=== PATIENT | female | born 1950 | race Caucasian/White ===

== ENCOUNTER → 2016-05-11 | Outpatient (CLI) | payer OTHER, BC ==
[~2016-05-11] MED LIST: PENTAMIDINE ISETHIONATE 300MG/6ML INH SYRINGE NEB ONE
== END ==
LOC: FCP 08:22
DX: C91.10 Chronic lymphocytic leukemia of B-cell type not having achieved remission (principal)
CPT/HCPCS: 94642; J2545

== ENCOUNTER → 2016-06-26 | Outpatient (CLI) | payer OTHER, BC | LOC: FCP 08:13 | DX: C91.10 Chronic lymphocytic leukemia of B-cell type not having achieved remission (principal) | CPT/HCPCS: 94642; J2545 ==

== ENCOUNTER → 2016-07-24 | Outpatient (CLI) | payer OTHER, BC | LOC: FCP 08:18 | PROC: 3E0F7GC Introduction of Other Therapeutic Substance into Respiratory Tract, Via Natural or Artificial Opening (ICD-10-PCS; principal; 2016-07-24) | DX: C91.10 Chronic lymphocytic leukemia of B-cell type not having achieved remission (principal); J18.9 Pneumonia, unspecified organism | CPT/HCPCS: 94642; J2545 ==

== ENCOUNTER → 2016-08-21 | Outpatient (CLI) | payer OTHER, BC | LOC: FCP 07:20 | PROC: 3E0F7GC Introduction of Other Therapeutic Substance into Respiratory Tract, Via Natural or Artificial Opening (ICD-10-PCS; principal; 2016-08-21) | DX: C91.10 Chronic lymphocytic leukemia of B-cell type not having achieved remission (principal); J18.9 Pneumonia, unspecified organism | CPT/HCPCS: 94642; J2545 ==

== ENCOUNTER 2016-08-31 08:52 | Day surgery (SDC) | payer OTHER, BC ==
[~2016-08-31 08:52] MED LIST changes: +BUPIVACAINE 0.5% 30 ML SDV ONE; +LIDOCAINE 1% 30 ML SDV ONE; -PENTAMIDINE ISETHIONATE 300MG/6ML INH SYRINGE NEB ONE; +SODIUM BICARBONATE 10 MEQ/10 ML SYR IVP ONE
[2016-08-31] MEDS ORDERED: PROPOFOL/EMULSION 500 MG/50 ML BOTTLE IV ONE (10:06)
[2016-08-31] MEDS ORDERED: fentaNYL 100 MCG/2 ML INJ ONE ×2 (10:06→11:57)
[2016-08-31] MEDS ORDERED: VANCOMYCIN 500 MG in D5W 100 ML IV ONE (10:30)
[2016-08-31] MEDS ORDERED: DEXAMETHASONE 4 MG/ML VIAL ONE (10:38)
[2016-08-31] MEDS ORDERED: ONDANSETRON 4 MG/2 ML VIAL ONE (10:54)
[2016-08-31] MEDS ORDERED: epHEDrine SULFATE 10 MG/ML SYR ONE (10:56)
--- NOTE | 2016-08-31 19:45 | GOP ---
[f rep st] OPERATIVE REPORT DATE OF OPERATION: 08/31/2016 SURGEON: Steven Kirby MD PREOPERATIVE DIAGNOSIS: Chronic lymphocytic leukemia. POSTOPERATIVE DIAGNOSIS: Chronic lymphocytic leukemia. PROCEDURE PERFORMED: Port placement for chemotherapy access. FINDINGS: good position and flow DESCRIPTION OF PROCEDURE: Patient received a satisfactory general endotracheal anesthesia by . She was placed in the supine position and prepped and draped in the usual sterile fashion. Then she was placed in Trendelenburg. A single stick was made in the left subclavian vein. Guidewire was introduced. Position was confirmed with fluoroscopy. A subcu pocket was made in the 2nd intercostal space at the site of a previous port placement. Pocket was created and port tubing was passed from that pocket to the subclavian insertion site, trimmed to the appropriate length using fluoroscopic guidance. It was then introduced through the introducer sheath and dilator system into the left subclavian vein and into the right atrium. Good backflow was achieved. The catheter was flushed with heparin and saline. His was secured to the fascia with 3-0 Vicryl, and the pocket was closed with 3-0 Vicryl for the subcu and 4-0 Prolene subcuticular stitch for the skin. The entrance site was closed with Prolene mattress suture. He tolerated the procedure well and was taken to the recovery room in good condition. There were no complications. /[id number]/MODL MTDD
== END 2016-08-31 13:48 | disposition home or self-care (01) ==
LOC: FSGY 08:52
PROVIDERS: ATTEND Surgery
PROC: 0JH60XZ Insertion of Tunneled Vascular Access Device into Chest Subcutaneous Tissue and Fascia, Open Approach (ICD-10-PCS; principal; 2016-08-31 10:15)
PROC: B312ZZZ Fluoroscopy of Left Subclavian Artery (ICD-10-PCS; principal; 2016-08-31 10:15)
PROC: 02HV33Z Insertion of Infusion Device into Superior Vena Cava, Percutaneous Approach (ICD-10-PCS; principal; 2016-08-31 10:15)
DX: C91.10 Chronic lymphocytic leukemia of B-cell type not having achieved remission (principal); E03.9 Hypothyroidism, unspecified; I71.2 Thoracic aortic aneurysm, without rupture
CPT/HCPCS: C1788; J1100; J1642; J2405; J2704; J3010; J3370

== ENCOUNTER → 2016-09-17 | Outpatient (CLI) | payer OTHER, BC | LOC: BHCLAF 13:15 | PROVIDERS: ATTEND Internal Medicine Cardiovascular Disease | DX: I72.9 Aneurysm of unspecified site (principal) | CPT/HCPCS: 93306-PO ==

== ENCOUNTER 2016-09-21 19:07 | Emergency (ER) | payer OTHER, BC ==
--- NOTE | 2016-09-21 20:00 | EDPHY ---
H & P Time Seen by Provider: 09/21/16 19:59 HPI/ROS: Chief complaint. shortness of breath HPI. 66-year-old female with history of CLL had a port placed in left anterior chest 2 weeks ago. Today she has right leg swelling and calf pain. Shortness of breath beginning yesterday. She has some left sided discomfort worse with deep breathing. No fever cough. Dyspnea on exertion. No similar symptoms previously. No abdominal pain, urinary symptoms. No injury to her leg. No history of PE/DVT or arm her heart problems ROS Constitutional. no fever/chills, no weakness Eyes. no problems with vision ENT. no sore throat, no nasal drainage Cardiovascular. Left anterior chest pain Respiratory. Shortness of breath Abdominal. no abdominal pain, no nausea/vomiting, no diarrhea . no problems urinating MS. Right lower extremity swelling Skin. no rash Lymph. no swollen glands Neuro. no headache, no dizziness, no difficulty walking or with speech Past Medical/Surgical History: CLL Social History: Single nonsmoker, no alcohol Smoking Status: Never smoked Physical Exam: General Appearance: Alert well-developed female mild distress vital signs are stay Eyes: Pupils equal and round no pallor or injection. ENT, Mouth: Mucous membranes are moist. Respiratory: There are no retractions, lungs are clear to auscultation. Cardiovascular: Regular rate and rhythm. Gastrointestinal: Abdomen is soft and nontender, no masses, bowel sounds normal. Neurological: Awake and alert, sensory and motor exams grossly normal. Skin: Warm and dry, no rashes. Musculoskeletal: Neck is supple nontender. Extremities mild swelling to the right her lower extremities Psychiatric: Patient is oriented X 3, there is no agitation. Constitutional: Initial Vital Signs Temperature (C) 36.9 C 09/21/16 19:12 Heart Rate 91 09/21/16 19:12 Respiratory Rate 18 09/21/16 19:12 Blood Pressure 132/69 H 09/21/16 19:12 O2 Sat (%) 95 09/21/16 19:12 O2 Delivery Mode Room Air Allergies/Adverse Reactions: cefdinir Allergy (Verified 09/21/16 19:16) Quinolones Allergy (Verified 09/21/16 19:16) NAUSEA, ITCHING, RASH Home Medications: Medication Instructions Recorded Thyroid [[place] Thyroid 60 MG (*)] 60 mg PO DAILY@07 09/17/14 Acyclovir [Zovirax 400 mg (*)] 300 mg PO BID 09/21/16 Medical Decision Making - Diagnostics EKG Interpretation: EKG interpreted by me shows use normal sinus rhythm with normal interval and axis. QRS is normal there is no significant ST elevation or depression. There is no arrhythmia. The rate is 76 Imaging Results: Imaging Impressions Chest/Thorax CTA 09/21/16 20:15 Impression: 1. Negative for acute pulmonary embolic disease. 2. Adenopathy consistent with the history of leukemia. Results called and discussed with Dr. Kenyatta Tyson M.D., on September 21, 2016 at 2228 hours. E:PK/amm Extremity Venous Study 09/21/16 20:16 Impression: No evidence of deep vein thrombosis in the right lower extremity. Results called and discussed with Dr. KENYATTA TYSON on 09/21/2016 at 21:50 Ultrasound right lower extremity reviewed by me and discussed with Dr. Newsome shows no evidence for DVT CT chest shows no evidence for pulmonary embolus Procedures: IV normal saline, monitor Patient tells me she has reaction to contrast. We will give her Benadryl and Solu-Medrol prior to CT ED Course/Re-evaluation: Patient's blood level has dropped and so rectal exam is performed. Stool is heme-negative Re-evaluation at 11:15 p.m.. Patient is stable. She feels well to go home. She and I discussed laboratory and imaging studies. We discussed treatment plan including criteria for return importance of follow-up and further evaluation. She is encouraged to return over the weekend for worsening symptoms. She expresses understanding and agreement Differential Diagnosis: I considered pulmonary embolus, DVT, pneumonia, GI bleed. - Data Points Laboratory Results: Laboratory Results 09/21/16 20:45 09/21/16 20:45 09/21/16 09/21/16 09/21/16 22:10 20:45 20:45 WBC RBC Hgb Hct MCV MCH MCHC RDW Plt Count MPV Neut % (Auto) Lymph % (Auto) [place] % (Auto) Eos % (Auto) Baso % (Auto) Nucleat RBC Rel Count Absolute Neuts (auto) Absolute Lymphs (auto) Absolute Monos (auto) Absolute Eos (auto) Absolute Basos (auto) Absolute Nucleated RBC Immature Gran % Seg Neutrophils % Lymphocytes % Monocytes % Eosinophils % Basophils % Immature Gran # Absolute Seg Neuts Absolute Lymphocytes Absolute Monocytes Absolute Eosinophils Absolute Basophils Atypical Lymphocytes Platelet Estimate Hypochromasia Microcytic Cells Smear Review By PT 13.1 SEC SEC (12.0-15.0) INR 1.00 (0.83-1.16) D-Dimer < 0.27 ug/mLFEU ug/mLFEU (0.00-0.50) Sodium 141 mEq/L mEq/L (134-144) Potassium 4.4 mEq/L mEq/L (3.5-5.2) Chloride 108 mEq/L mEq/L (97-110) Carbon Dioxide 22 mEq/l mEq/l (22-31) Anion Gap 11 mEq/L mEq/L (8-16) BUN 18 mg/dL mg/dL (7-23) Creatinine 0.9 mg/dL mg/dL (0.6-1.0) Estimated GFR > 60 Glucose 80 mg/dL mg/dL (70-100) Calcium 9.2 mg/dL mg/dL (8.5-10.4) Troponin I < 0.012 ng/mL ng/mL (0-0.034) Stool Occult Bld Scrn NEGATIVE (NEGATIVE) 09/21/16 20:45 WBC 12.84 10^3/uL H 10^3/uL (3.80-9.50) RBC 3.02 10^6/uL L 10^6/uL (4.18-5.33) Hgb 8.5 g/dL L g/dL (12.6-16.3) Hct 25.9 % L % (38.0-47.0) MCV 85.8 fL fL (81.5-99.8) MCH 28.1 pg pg (27.9-34.1) MCHC 32.8 g/dL g/dL (32.4-36.7) RDW 15.9 % H % (11.5-15.2) Plt Count 244 10^3/uL 10^3/uL (150-400) MPV 11.5 fL fL (8.7-11.7) Neut % (Auto) Not Reported Lymph % (Auto) Not Reported P[place] % (Auto) Not Reported Eos % (Auto) Not Reported Baso % (Auto) Not Reported Nucleat RBC Rel Count 0.0 % % (0.0-0.2) Absolute Neuts (auto) Not Reported Absolute Lymphs (auto) Not Reported Absolute Monos (auto) Not Reported Absolute Eos (auto) Not Reported Absolute Basos (auto) Not Reported Absolute Nucleated RBC 0.00 10^3/uL 10^3/uL (0-0.01) Immature Gran % Not Reported Seg Neutrophils % 34 % % Lymphocytes % 61 % % Monocytes % 1 % % Eosinophils % 2 % % Basophils % 2 % % Immature Gran # Not Reported Absolute Seg Neuts 4.37 10^/uL 10^/uL (1.70-6.50) Absolute Lymphocytes 7.83 10^3/uL H 10^3/uL (1.00-3.00) Absolute Monocytes 0.13 10^3/uL L 10^3/uL (0.30-0.80) Absolute Eosinophils 0.26 10^3/uL 10^3/uL (0.03-0.40) Absolute Basophils 0.26 10^3/uL H 10^3/uL (0.02-0.10) Atypical Lymphocytes 1+ H Platelet Estimate ADEQUATE (ADEQ) Hypochromasia 2+ H Microcytic Cells 2+ H Smear Review By Pending PT INR D-Dimer Sodium Potassium Chloride Carbon Dioxide Anion Gap BUN Creatinine Estimated GFR Glucose Calcium Troponin I Stool Occult Bld Scrn Medications Given: Discontinued Medications Diphenhydramine HCl (Benadryl Injection) 25 mg IVP EDNOW ONE Stop: 09/21/16 20:15 Last Admin: 09/21/16 20:42 Dose: 25 mg Sodium Chloride (Ns) 1,000 mls @ 0 mls/hr IV ONCE ONE PRN Reason: Wide Open Stop: 09/21/16 20:15 Last Admin: 09/21/16 20:40 Dose: 1,000 mls Methylprednisolone Sodium Succinate (Solu-Medrol) 125 mg IVP EDNOW ONE Stop: 09/21/16 20:15 Last Admin: 09/21/16 20:44 Dose: 125 mg Departure - Departure Disposition: Home, Routine, Self-Care Clinical Impression: Dyspnea Qualifiers: Dyspnea type: shortness of breath Qualified Code(s): R06.02 - Shortness of breath Condition: Good Instructions: Dyspnea (ED) Additional Instructions: Continue regular medications. Return for worsening symptoms over the weekend of difficulty breathing or abdominal pain. Recheck by Vivian Feliz or [facility] next week on Saturday or Saturday when the office really opens. Referrals: Mamie Conley MD [Primary Care Provider] - As per Instructions Vivian Feliz MD [Medical Doctor] - As per Instructions
[2016-09-21] MEDS ORDERED: NS 1,000 ML IV ONE (20:14)
[2016-09-21] MEDS ORDERED: methylPREDNISolone SOD SUCC 125 MG/2 ML VIAL IVP ONE (20:14)
[2016-09-21] MEDS ORDERED: IOPAMIDOL (ISOVUE 370) 100 ML BTL IV ONE (20:34)
[2016-09-21 20:53] LABS: ADD MORPH? NO; ATYPICAL LYMPHOCYTE FLAG 10 (0-99); FRAGMENT RBC FLAG 20 (0-99); HEMATOCRIT 25.9 % (38.0-47.0); HEMOGLOBIN 8.5 g/dL (12.6-16.3); LEFT SHIFT FLG 0 (0-99); LIPEMIA HEMOLYSIS FLAG 80 (0-99); MEAN CELL HEMOGLOBIN 28.1 pg (27.9-34.1); MEAN CELL HEMOGLOBIN CONCENTR. 32.8 g/dL (32.4-36.7); MEAN CELL VOLUME 85.8 fL (81.5-99.8); MEAN PLATELET VOLUME 11.5 fL (8.7-11.7); PLATELET CLUMPS FLAG 10 (0-99); PLATELET COUNT 244 10^3/uL (150-400); RED BLOOD CELL COUNT 3.02 10^6/uL (4.18-5.33); RED CELL DISTRIBUTION WIDTH 15.9 % (11.5-15.2)
[2016-09-21 20:54] LABS: ADD DIFF? YES; ADD SCAN? NO
--- NOTE | 2016-09-21 20:54 | CPEKG ---
Heart Rate: 76 RR Interval: 789 P-R Interval: 128 QRSD Interval: 98 QT Interval: 408 QTC Interval: 459 P Diagonal: 13 QRS Diagonal: 28 T Wave Diagonal: 10 EKG Severity - NORMAL ECG - EKG Impression: SINUS RHYTHM Electronically Signed By: Oliver Tyson 21-Sep-2016 23:55:53
[2016-09-21 21:03] LABS: PROTIME(PATIENT) 13.1 SEC (12.0-15.0)
[2016-09-21 21:06] LABS: ANION GAP 11 mEq/L (8-16); CALCIUM 9.2 mg/dL (8.5-10.4); CARBON DIOXIDE 22 mEq/l (22-31); CHLORIDE 108 mEq/L (97-110); CREATININE 0.9 mg/dL (0.6-1.0); GLOMERULAR FILTRATION RATE > 60; GLUCOSE 80 mg/dL (70-100); POTASSIUM 4.4 mEq/L (3.5-5.2); SODIUM 141 mEq/L (134-144)
[2016-09-21 21:18] LABS: TROPONIN I < 0.012 ng/mL (0-0.034)
[2016-09-21 21:22] VITALS: RESP 20
[2016-09-21 21:37] LABS: HYPOCHROMIA 2+; MICROCYTES 2+; PLATELET ESTIMATE ADEQUATE (ADEQ)
[2016-09-21 22:12] VITALS: O2SAT 94
[2016-09-21 23:46] VITALS: BP 114/73; PULSE 95; TEMP 97.9
== END 2016-09-21 23:46 | disposition home or self-care (01) ==
DX: R06.02 Shortness of breath (principal)
CPT/HCPCS: 71275; 93005; 93971; 96361; 96374; 96375; 99285; J1200; Q9967

== ENCOUNTER 2016-11-29 10:03 | Outpatient (CLI) | payer OTHER, BC ==
[2016-11-29] MEDS ORDERED: ACETAMINOPHEN 325 MG TAB PO ONE (10:45)
[2016-11-29 10:59] VITALS: BP 109/70; PULSE 80; RESP 16; TEMP 97.7; O2SAT 94
[2016-11-29] MEDS ORDERED: diphenhydrAMINE 25 MG CAP PO ONE (11:00)
== END 2016-11-29 14:45 | disposition home or self-care (01) ==
LOC: FOBOP 10:03
PROVIDERS: ATTEND Internal Medicine Hematology & Oncology
PROC: 30233N1 Transfusion of Nonautologous Red Blood Cells into Peripheral Vein, Percutaneous Approach (ICD-10-PCS; principal; 2016-11-29)
DX: C91.10 Chronic lymphocytic leukemia of B-cell type not having achieved remission (principal); D72.829 Elevated white blood cell count, unspecified
CPT/HCPCS: 36430; J1642; P9016; P9040

== ENCOUNTER 2016-12-07 11:55 | Observation (INO) | payer OTHER, BC ==
[2016-12-07] MEDS ORDERED: methylPREDNISolone SOD SUCC 125 MG/2 ML VIAL IVP ONE ×2 (13:50→14:03)
[2016-12-07] MEDS ORDERED: LIDOCAINE/PRILOCAINE 1 EACH CRTUBE TP ONE (13:50)
[2016-12-07] MEDS ORDERED: ACETAMINOPHEN 325 MG TAB PO PRN (14:03)
[2016-12-07] MEDS ORDERED: ONDANSETRON DISINTEGRATING 4 MG TAB PO PRN (14:03)
[2016-12-07] MEDS ORDERED: ONDANSETRON 4 MG/2 ML VIAL IVP PRN (14:03)
[2016-12-07] MEDS ORDERED: ALBUTEROL 3 ML DEYVIAL IH PRN (14:03)
[2016-12-07] MEDS ORDERED: OXYCODONE/APAP 5/325 TAB PO PRN (14:03)
[2016-12-07] MEDS ORDERED: IMMUNE GLOBULIN 5 GM/50 ML VIAL IV ONE (14:15)
[2016-12-07] MEDS ORDERED: IMMUNE GLOBULIN 20 GM/200 ML VIAL IV ONE (14:15)
--- NOTE | 2016-12-07 14:29 | PDGENHP ---
History and Physical - Chief Complaint dyspnea - History of Present Illness This is a 66 yo female with hx of CLL who was directly admitted from [facility] office due to dyspnea and dyspnea on exertion and concern for acute P.E. She is seen in the Oncology unit. She reports several days hx of Dyspnea and Dyspnea on exertion which is positional. Worse when laying down. Afebrile. Denies CP, palpitations, leg swelling, diaphoresis, jaw pain. No hx of CV disease. Currently not symptomatic and with no dyspnea. Reports no fever, cough , wheezing, or other. Denies tobacco abuse. On RA. No tachycardia. No anxiety PMHx: -CLL -Leukocytosis -contrast allergy -Hypogammaglobulinemia -intra-abdominal mass -Hypothyroidism PSHx: Hysterectomy, abdominal wall biopsy Soc Hx: lives with dauther. Denies tobacco, ETOH, or illicits FmHx: NC All/Meds: see below History Information - Allergies/Home Medication List Allergies/Adverse Reactions: cefdinir Allergy (Verified 09/21/16 19:16) Quinolones Allergy (Verified 09/21/16 19:16) NAUSEA, ITCHING, RASH Home Medications: RX: Thyroid [[place] Thyroid 60 MG (*)] 60 mg PO DAILY@07 09/17/14 [Last Taken ] Acyclovir [Zovirax 400 mg (*)] 300 mg PO BID 09/21/16 [Last Taken 12/07/16] Allopurinol [Allopurinol 300 MG (RX)] 300 mg PO DAILY 11/29/16 [Last Taken 12/06] Ibrutinib [Imbruvica] 420 mg PO DAILY@19 11/29/16 [Last Taken 12/06/16 2 caps] Alive Multivitamin 1 each PO DAILY 12/07/16 [Last Taken 12/06/16] Gentamicin 0.3% [Gentak 0.3% Opht Oint (RX)] 2 drops EACHEYE TID 12/07/16 [Last Taken Unknown] Immune Support 1 each PO DAILY 12/07/16 [Last Taken 12/06/16] I have personally reviewed and updated: medical history, social history, surgical history - Social History Smoking Status: Never smoked Review of Systems ROS: 10pt was reviewed & negative except for what was stated in HPI & below Physical Exam Temp Pulse Resp BP Pulse Ox 37.0 C 71 16 111/72 100 12/07/16 12:07 12/07/16 12:07 12/07/16 12:07 12/07/16 12:07 12/07/16 12:07 Constitutional: no apparent distress, appears nourished, not in pain Eyes: PERRL, anicteric sclera, EOMI Ears, Nose, Mouth, Throat: moist mucous membranes, hearing normal, No dry mucous membranes Cardiovascular: regular rate and rhythym, No no murmur, rub, or gallop, No JVD, No edema Respiratory: no respiratory distress, no rales or rhonchi, clear to auscultation Gastrointestinal: normoactive bowel sounds, soft, non-tender abdomen, no palpable masses Skin: warm Neurologic: AAOx3, sensation intact bilaterally, weakness Psychiatric: interacting appropriately, not anxious, not encephalopathic Assessment & Plan Assessment: #Dyspnea in pt with contrast allergy #CLL #Leukocytosis #Hypogammaglobulinemia #Hypothyroidism Plan: -Admit observation -Reviewed records. She had an unremarkable CTA chest on 09/21. Solumedrol 125 mg IV x 1 and Benadryl were provided w/o incident. She reports she tolerated this well. Will pretreat with this regime prior to CTA -Onc mgmt and IVIG per onc -She is very stable on RA currently, no hx of CV disease. NO hx of ID sx's. Will hold of further CV or ID w/u at this time -SCD's -Full code (for now. She has an advance directive but doesnt know what it reads , wants to be a full code for now) -Plan d/w Oncology and nursing team
--- NOTE | 2016-12-07 14:37 | GCON ---
[f rep st] CONSULTATION ONCOLOGY CONSULTATION PRIMARY ONCOLOGIST: Vivian Feliz MD REASON FOR VISIT: Evaluation and management for CLL. HISTORY OF PRESENT ILLNESS: The patient is a 66-year-old woman who was diagnosed with CLL in approx imately 2007. She did require therapy until middle of 2011 when she received bendamustine plus nena ximab. Apparently she had a significant improvement in extensive lymphadenopathy. In April 2013, she recurred and was seen by Dr. Leahy at [facility]. She had also seen for poss ible transplant and recommended ibrutinib which she started in April 2013. Unfortunately she did not really tolerate a full dose and she stopped that for approximately 5 months. She did have a sig nificant improvement in mesenteric retroperitoneal lymphadenopathy. She then developed progression again and I suggested that she consider trying idelalisib and rituximab, but she did not tolerate id elalisib with a skin rash, tingling and difficulty breathing. She then went on a clinical trial wit h obinutuzumab plus venetoclax in February 2015 and did well up until September of this year when she sta rted progressing. She then was started on a trial with TTI-621, its binding to CD47 prevented it fr om delivering an inhibitory do not eat signal to macrophages. Unfortunately she progressed on this treatment. She is being evaluated for CAR T protocol and was started back on ibrutinib. She did ge t a jump in her lymphocyte count, as expected from the drug, and she still has chronic fatigue, but she thinks some of the lymphadenopathy, especially in her abdominal lymphadenopathy, has significant ly improved. She was in the office today for followup and was noticing more trouble breathing. Her night sweats have improved. She denied any fever but she had a new prod uctive cough. She has also lost about 15 pounds over the last 6 weeks. While in the office, with a ctivity, her oxygen saturation went down in the 70s. She is admitted to the hospital to work this u p. She believes that she has had a significant reaction to CT contrast dye in the past. PAST MEDICAL HISTORY: 1. CLL as per HPI. 2. Hypogammaglobulinemia requiring recurrent monthly IVIG, last was early October I believe. 3. Hypothyroidism. SURGICAL HISTORY: Includes hysterectomy and . FAMILY HISTORY: Father at age 99. Mother was last checked, still living at age 92. She has a sister who may have chronic leukemia. SOCIAL HISTORY: She is a nonsmoker. REVIEW OF SYSTEMS: 10-point review of systems performed. Pertinent positives in HPI, otherwise neg ative. The only other thing she complained about is occasionally things feel like they "get stuck i n her throat." This includes pills and when she is eating well. She also does not have much of an appetite because food does not taste good. PHYSICAL EXAMINATION: VITAL SIGNS: Current temperature is 37, pulse is 71, blood pressure is 111/7 0. She is saturating currently at rest at above 90%. GENERAL: She is pale but in no distress. HEENT: Sclerae nonicteric. Oral mucosa is unremarkable. LUNGS: Actually clear currently. CARDIAC : Regular with a 2/6 systolic flow murmur. ABDOMEN: Soft. She has fullness in the pelvis consist ent with the previous lymphadenopathy. EXTREMITIES: No edema. LABORATORY DATA: This morning her white count was 225,000; it was 210,000 on the 1st. Hemoglobin i s 8.3 g/dL, 7.4 g/dL on the 1st. She did receive 1 unit of blood in between. Platelet count is 163,0 00 which is up from 139,000. ANC is 5400. Chemistries are unremarkable. Her total bilirubin liliam u p a little bit to 2.9 from 2.1. IMPRESSION: 1. Shortness of breath, cough and hypoxia with activity. 2. Refractory CLL. PLAN: Unclear exactly the etiology of the drop in her on oxygenation. I think we should get a CT a ngiogram to rule out a blood clot. We can also look to see if she has evidence of a pneumonia. She is late on her IVIG and will make sure she gets a dose overnight. If the CT scan is unremarkable a nd she either stabilizes or oxygenation improves with replacement, she might be able to go home. If she has a clot, of course, we would treat her and probably best to treat her with oral drugs such a s apixaban or actual rivaroxaban. If she has pneumonia, of course, then she would need to be approp riately treated with antibiotics along with the IVIG. Finally she could have enlarged lymph nodes i n her chest causing some partial obstruction. If that is thought to be the case, she might benefit from palliative radiation but that could be set up outpatient. Because there is a possible history of an allergic reaction, we will give her Benadryl and a low dose of Solu-Medrol prior to the CT. S he did not want the standard dose because the steroids make her very jittery, but she was willing to use a low dose, understanding the risks. /[id number]/MODL
[2016-12-07] MEDS ORDERED: IOPAMIDOL (ISOVUE 370) 100 ML BTL IV ONE (15:24)
[2016-12-07] MEDS: LORazepam 0.5 MG TAB PO PRN (15:28)
[2016-12-07] MEDS ORDERED: GENTAMICIN 0.3% 3.5 GM OPHT.OINT EACHEYE SCH (16:00)
[2016-12-07] MEDS: GENTAMICIN 0.3% OPHT DROPS 5ML EACHEYE SCH ×2 (17:41→21:36)
[2016-12-07] MEDS ORDERED: Ibrutinib [Imbruvica] 420 MG PO SCH ×3 (19:00)
[2016-12-07] MEDS: ALLOPURINOL 300 MG TAB PO SCH (20:19)
[2016-12-07] MEDS: ACYCLOVIR 400 MG TAB PO SCH (21:36)
[2016-12-08] MEDS: LORazepam 0.5 MG TAB PO PRN (00:23)
[2016-12-08 04:05] VITALS: RESP 16
[2016-12-08 04:51] LABS: ABSOLUTE NRBC COUNT 0.03 10^3/uL (0-0.01); ADD DIFF? YES; ATYPICAL LYMPHOCYTE FLAG 0 (0-99); HEMATOCRIT 25.4 % (38.0-47.0); LEFT SHIFT FLG 30 (0-99); LIPEMIA HEMOLYSIS FLAG 70 (0-99); MEAN CELL HEMOGLOBIN 26.9 pg (27.9-34.1); MEAN CELL VOLUME 97.7 fL (81.5-99.8); MEAN PLATELET VOLUME 12.3 fL (8.7-11.7); PLATELET CLUMPS FLAG 0 (0-99); PLATELET COUNT 158 10^3/uL (150-400)
[2016-12-08 04:52] LABS: MEAN CELL HEMOGLOBIN CONCENTR. 27.6 g/dL (32.4-36.7)
[2016-12-08 04:53] LABS: ADD MORPH? YES
[2016-12-08 04:54] LABS: ADD SCAN? YES
[2016-12-08 05:00] LABS: CHLORIDE 108 mEq/L (97-110)
[2016-12-08 05:02] LABS: ANION GAP 9 mEq/L (8-16); CALCIUM 9.1 mg/dL (8.5-10.4); CARBON DIOXIDE 22 mEq/l (22-31); CREATININE 0.9 mg/dL (0.6-1.0); GLOMERULAR FILTRATION RATE > 60; GLUCOSE 117 mg/dL (70-100); POTASSIUM 3.8 mEq/L (3.5-5.2); SODIUM 139 mEq/L (134-144)
[2016-12-08 05:26] LABS: MACROCYTES 1+; MICROCYTES 2+
[2016-12-08 05:27] LABS: PLATELET ESTIMATE DECREASED (ADEQ)
[2016-12-08] MEDS: ACYCLOVIR 400 MG TAB PO SCH (06:27)
[2016-12-08] MEDS ORDERED: THYROID 60 MG TAB PO SCH (07:00)
[2016-12-08] MEDS: GENTAMICIN 0.3% OPHT DROPS 5ML EACHEYE SCH ×2 (08:53→17:17)
[2016-12-08] MEDS: ALLOPURINOL 300 MG TAB PO SCH (08:54)
[2016-12-08] MEDS ORDERED: ALLOPURINOL 300 MG TAB PO SCH (09:00)
[2016-12-08] MEDS ORDERED: IMMUNE SUPPORT PO SCH (09:00)
[2016-12-08] MEDS ORDERED: ALIVE MULTIVITAMIN PO SCH (09:00)
[2016-12-08] MEDS ORDERED: diphenhydrAMINE 25 MG CAP PO ONE ×2 (12:07→12:15)
[2016-12-08] MEDS ORDERED: ACETAMINOPHEN 325 MG TAB PO ONE (12:15)
[2016-12-08 16:07] VITALS: BP 109/62; PULSE 79; TEMP 98.4; O2SAT 94
--- NOTE | 2016-12-08 21:20 | GDS ---
[f rep st] DISCHARGE SUMMARY DISCHARGE DIAGNOSES: 1. Hypoxemia, transient. 2. CLL. 3. Hypogammaglobulinemia, status post IVIG. 4. Profound leukocytosis. HISTORY: The patient is a 66-year-old female, who has a longstanding history of CLL, for which she has had an extensive treatment history, including multiple clinical trials. Please refer to Dr. Dominga jackson's note for more details. [facility] the hospital for ob servation of hypoxemia. CT angiogram of the chest was performed. She does have an IV contrast dye allergy and was treated accordingly without any subsequent reaction. Her CTA was negative for PE. Her lymphadenopathy is actually improving compared with her most recent scan. Leukocytosis is sever e with a white blood cell count of 215. Oncology is aware of this and think nothing further needs t o be done at this time. She continues on ibrutinib, which appears to be shrinking her lymphadenopat hy and there is an anticipated jump in lymphocyte count with initiating this therapy. I suspect she may have some leukostasis as a cause of her shortness of breath. She was also anemic with a hemogl obin of 7, and got a unit of blood prior to discharge. Hypoxemia resolved. She was 94% on room air and she did not require home oxygen. She received IVIG for hypogammaglobulinemia during this hospi talization as she was due. DISCHARGE MEDICATIONS: Please see computer record for full detailed list. There were no new medica tions given at the time of hospital discharge. ADDITIONAL DISCHARGE INSTRUCTIONS: Follow up with Dr. Vivian Feliz at [facility] a s prescribed. Patient was seen and examined by me on the day of discharge. /[id number]/MODL
== END 2016-12-08 17:38 | disposition home or self-care (01) ==
LOC: INTOOBSV 12:00 → F1N 12:00
PROVIDERS: ADMIT Family Medicine; ATTEND Internal Medicine
PROC: 30233N1 Transfusion of Nonautologous Red Blood Cells into Peripheral Vein, Percutaneous Approach (ICD-10-PCS; principal; 2016-12-07)
DX: R09.02 Hypoxemia (principal); C91.12 Chronic lymphocytic leukemia of B-cell type in relapse; D63.0 Anemia in neoplastic disease; D80.1 Nonfamilial hypogammaglobulinemia; E03.9 Hypothyroidism, unspecified; Z91.041 Radiographic dye allergy status
CPT/HCPCS: 36430; 71275; G0378; J1200; J1459; J1642; P9016; P9040; Q9967

== ENCOUNTER → 2017-01-31 | Outpatient (CLI) | payer OTHER, BC | LOC: CIMAGING 08:54 | PROVIDERS: ATTEND Internal Medicine Hematology & Oncology | DX: R10.11 Right upper quadrant pain (principal); K43.9 Ventral hernia without obstruction or gangrene; K76.89 Other specified diseases of liver; C91.12 Chronic lymphocytic leukemia of B-cell type in relapse | CPT/HCPCS: 76705-PO ==

== ENCOUNTER → 2017-03-18 | Outpatient (CLI) | payer OTHER, BC ==
[~2017-03-18] MED LIST changes: -BUPIVACAINE 0.5% 30 ML SDV ONE; +IOPAMIDOL (ISOVUE-300) 100 ML BTL ONE; -LIDOCAINE 1% 30 ML SDV ONE; -SODIUM BICARBONATE 10 MEQ/10 ML SYR IVP ONE
== END ==
LOC: FIMAGING 14:17
PROVIDERS: ATTEND Surgery
DX: R19.00 Intra-abdominal and pelvic swelling, mass and lump, unspecified site (principal)
CPT/HCPCS: 74177; Q9967

== ENCOUNTER → 2017-04-10 | Outpatient (CLI) | payer OTHER, BC ==
[~2017-04-10] MED LIST changes: +IOPAMIDOL (ISOVUE 370) 100 ML BTL IV ONE; -IOPAMIDOL (ISOVUE-300) 100 ML BTL ONE
== END ==
LOC: CIMAGING 10:19
PROVIDERS: ATTEND Surgery
DX: C80.1 Malignant (primary) neoplasm, unspecified (principal); R19.00 Intra-abdominal and pelvic swelling, mass and lump, unspecified site; K76.89 Other specified diseases of liver; C91.10 Chronic lymphocytic leukemia of B-cell type not having achieved remission; R93.3 Abnormal findings on diagnostic imaging of other parts of digestive tract
CPT/HCPCS: 71260; 74175; Q9967

== ENCOUNTER 2017-04-23 07:23 | Inpatient (IN) | payer OTHER, BC ==
--- NOTE | 2017-04-23 07:32 | EDPHY ---
H & P Time Seen by Provider: 04/23/17 07:31 HPI/ROS: CHIEF COMPLAINT: Cough and fever HISTORY OF PRESENT ILLNESS: Patient was hospitalized in [place] over for pneumonia. She is currently on oral chemotherapy for CLL. Over the past 24 hr she has developed a cough and a fever and weakness. She symptoms are associated with night sweats and severe fatigue. Not better or worse with anything. No recent sick exposures. Symptoms are severe. REVIEW OF SYSTEMS: Eye: no change in vision ENT: no sore throat Cardiac: no chest pain or syncope Pulmonary: HPI Abdomen: no vomiting, diarrhea, abdominal pain Musculoskeletal: no back pain Skin: no rash Neuro: no headache Constitutional: HPI : no urinary symptoms A comprehensive 10 point review of systems is otherwise negative aside from elements mentioned in the history of present illness. PAST MEDICAL HISTORY: H&P dated 12/07/2016 personally reviewed. Includes CLL with indwelling port, hysterectomy, had negative CT angiography for pulmonary embolism on that date. Hepatitis a. Social history: Nonsmoker General Appearance: Alert and conversant, cooperative. Eyes: No scleral icterus. ENT, Mouth: Normal mucous membranes. Respiratory: Decreased breath sounds bilaterally but no wheezing. Cardiovascular: Regular rate and rhythm. Gastrointestinal: Abdomen is soft and non tender. Central mass present. Neurological: Alert and oriented x3. Normally conversant. Face symmetric, normal movement and sensation in all extremities. Skin: Warm and dry, no rashes. Skin over the port looks clean dry and intact. Musculoskeletal: Normal range of motion of the neck, no meningeal signs. Psychiatric: Not agitated. Emergency Department course/MDM: Presents with fever and cough. Differential broad but includes pulmonary infection and influenza. Lactate screening, labs, IV fluids. Patient is immunocompromised as she is on chemotherapy. 835: Results discussed, admission for pneumonia possible Hcap, severe sepsis criteria. IV fluids, 2nd lactate, broad-spectrum antibiotics to include vancomycin 1 g IV with port, and meropenem 1g IV. Noted to have only 12% [place] [address], does not appear to have neutropenia by ANC. 932: Influenza A positive, oral Tamiflu ordered but patient to floor before given. Smoking Status: Never smoked Constitutional: Initial Vital Signs Temperature (C) 39.2 C H 04/23/17 07:37 Heart Rate 106 H 04/23/17 07:37 Respiratory Rate 20 04/23/17 07:37 Blood Pressure 139/75 H 04/23/17 07:37 O2 Sat (%) 98 04/23/17 07:37 O2 Delivery Mode Room Air Allergies/Adverse Reactions: cefdinir Allergy (Severe, Verified 04/23/17 09:24) Anaphylaxis Quinolones Allergy (Verified 09/21/16 19:16) NAUSEA, ITCHING, RASH Home Medications: Medication Instructions Recorded Thyroid [[place] Thyroid 60 MG (*)] 60 mg PO DAILY06 09/17/14 Acyclovir [Zovirax 400 mg (*)] 400 mg PO BID 09/21/16 Ibrutinib [Imbruvica] 420 mg PO DAILY 11/29/16 Medical Decision Making - Diagnostics Imaging Results: Imaging Impressions Chest X-Ray 04/23/17 07:46 Impression: Suspect a mild infiltrate in the posterior medial right lower lobe. Differential Diagnosis: Differential for fever considered including but not limited to UTI, pneumonia, influenza, sepsis. Critical Care Time: Critical care time spent by me, Dr. Denton, exclusively with the care of this patient was 30 minutes, exclusive of PA or [employer] time and exclusive of separate procedures. The organ system at risk was pulmonary and infectious and I ordered multiple diagnostics, IV fluid resuscitation, IV antibiotics; to stabilize the patient and prevent worsening of the patient's condition. - Data Points Laboratory Results: Laboratory Results 04/23/17 08:00 04/23/17 08:00 04/23/17 04/23/17 04/23/17 08:00 08:00 08:00 WBC 43.61 10^3/uL H 10^3/uL (3.80-9.50) RBC 2.62 10^6/uL L 10^6/uL (4.18-5.33) Hgb 6.8 g/dL L g/dL (12.6-16.3) Hct 22.8 % L % (38.0-47.0) MCV 87.0 fL fL (81.5-99.8) MCH 26.0 pg L pg (27.9-34.1) MCHC 29.8 g/dL L g/dL (32.4-36.7) RDW 17.2 % H % (11.5-15.2) Plt Count 239 10^3/uL 10^3/uL (150-400) MPV 12.0 fL H fL (8.7-11.7) Neut % (Auto) 12.7 % L % (39.3-74.2) Lymph % (Auto) 85.9 % H % (15.0-45.0) Orange % (Auto) 0.7 % L % (4.5-13.0) Eos % (Auto) 0.2 % L % (0.6-7.6) Baso % (Auto) 0.2 % L % (0.3-1.7) Nucleat RBC Rel Count 0.0 % % (0.0-0.2) Absolute Neuts (auto) 5.55 10^3/uL 10^3/uL (1.70-6.50) Absolute Lymphs (auto) 37.48 10^3/uL H 10^3/uL (1.00-3.00) Absolute Monos (auto) 0.31 10^3/uL 10^3/uL (0.30-0.80) Absolute Eos (auto) 0.08 10^3/uL 10^3/uL (0.03-0.40) Absolute Basos (auto) 0.08 10^3/uL 10^3/uL (0.02-0.10) Absolute Nucleated RBC 0.00 10^3/uL 10^3/uL (0-0.01) Immature Gran % 0.3 % % (0.0-1.1) Seg Neutrophils % 5 % % Lymphocytes % 95 % % Immature Gran # 0.11 10^3/uL H 10^3/uL (0.00-0.10) Absolute Seg Neuts 2.18 10^/uL 10^/uL (1.70-6.50) Absolute Lymphocytes 41.43 10^3/uL H 10^3/uL (1.00-3.00) Platelet Estimate ADEQUATE (ADEQ) Polychromasia 1+ H Smear Review By Pending PT 15.2 SEC H SEC (12.0-15.0) INR 1.18 H (0.83-1.16) APTT 31.7 SEC SEC (23.0-38.0) VBG Lactic Acid Sodium Potassium Chloride Carbon Dioxide Anion Gap BUN Creatinine Estimated GFR Glucose Calcium Total Bilirubin Procalcitonin 0.04 ng/mL ng/mL (0.02-0.10) 04/23/17 04/23/17 08:00 08:00 WBC RBC Hgb Hct MCV MCH MCHC RDW Plt Count MPV Neut % (Auto) Lymph % (Auto) Orange % (Auto) Eos % (Auto) Baso % (Auto) Nucleat RBC Rel Count Absolute Neuts (auto) Absolute Lymphs (auto) Absolute Monos (auto) Absolute Eos (auto) Absolute Basos (auto) Absolute Nucleated RBC Immature Gran % Seg Neutrophils % Lymphocytes % Immature Gran # Absolute Seg Neuts Absolute Lymphocytes Platelet Estimate Polychromasia Smear Review By PT INR APTT VBG Lactic Acid 2.3 mmol/L H mmol/L (0.7-2.1) Sodium 144 mEq/L mEq/L (134-144) Potassium 3.9 mEq/L mEq/L (3.5-5.2) Chloride 106 mEq/L mEq/L (97-110) Carbon Dioxide 22 mEq/l mEq/l (22-31) Anion Gap 16 mEq/L mEq/L (8-16) BUN 13 mg/dL mg/dL (7-23) Creatinine 0.8 mg/dL mg/dL (0.6-1.0) Estimated GFR > 60 Glucose 93 mg/dL mg/dL (70-100) Calcium 8.5 mg/dL mg/dL (8.5-10.4) Total Bilirubin 1.5 mg/dL H mg/dL (0.1-1.4) Procalcitonin Microbiology Results: MICROBIOLOGY 04/23/17 08:00 Nasal, Sinus - Swab Respiratory Panel (PCR) - Final Influenza Virus Type A H3 Medications Given: Acetaminophen (Tylenol) 650 mg PO Q4HRS PRN PRN Reason: Pain, Mild/Fever, Can Take PO Stop: 10/20/17 08:37 Last Admin: 04/23/17 10:42 Dose: 650 mg Lactated Ringer's (Lr) 1,000 mls @ 100 mls/hr IV CONT CALLI Stop: 10/20/17 09:29 Last Admin: 04/23/17 10:43 Dose: 1,000 mls Discontinued Medications Meropenem 1 gm/ Sodium (Chloride) 120 mls @ 120 mls/hr IV EDNOW ONE PRN Reason: Protocol Stop: 04/23/17 09:17 Last Admin: 04/23/17 09:29 Dose: Not Given Sodium Chloride (Ns) 1,600 mls @ 3,200 mls/hr 30 ml/kg infuse over 30 min ( 1600 ml) IV EDNOW ONE PRN Reason: Protocol Stop: 04/23/17 08:47 Last Admin: 04/23/17 09:06 Dose: 1,600 mls Vancomycin/Sodium Chloride (Vancomycin 1 Gm (Premix)) 250 mls @ 250 mls/hr IV EDNOW ONE PRN Reason: Protocol Stop: 04/23/17 09:18 Last Admin: 04/23/17 09:29 Dose: Not Given Departure - Departure Disposition: [facility] Inpatient Acute Clinical Impression: Pneumonia Qualifiers: Pneumonia type: due to unspecified organism Laterality: right Lung location: lower lobe of lung Qualified Code(s): J18.1 - Lobar pneumonia, unspecified organism Condition: Fair
[2017-04-23 08:12] LABS: PLATELET COUNT 239 10^3/uL (150-400)
[2017-04-23] MEDS ORDERED: NS 1,600 ML IV ONE (08:18)
[2017-04-23] MEDS ORDERED: MEROPENEM 1 GM in NS 100 ML IV ONE (08:18)
[2017-04-23] MEDS ORDERED: VANCOMYCIN HCL/NORMAL SALINE 250 ML IV ONE (08:19)
[2017-04-23 08:21] LABS: INR 1.18 (0.83-1.16); PROTIME(PATIENT) 15.2 SEC (12.0-15.0)
[2017-04-23] MEDS ORDERED: ONDANSETRON DISINTEGRATING 4 MG TAB PO PRN (08:38)
[2017-04-23] MEDS ORDERED: ONDANSETRON 4 MG/2 ML VIAL IVP PRN (08:38)
[2017-04-23] MEDS ORDERED: ENOXAPARIN 40 MG/0.4 ML SYR SC SCH (09:00)
[2017-04-23] MEDS ORDERED: OSELTAMIVIR PHOSPHATE 75 MG CAP PO ONE (09:32)
--- NOTE | 2017-04-23 09:49 | GHP ---
[f rep st] HISTORY AND PHYSICAL DATE OF ADMISSION: 04/23/2017 CHIEF COMPLAINT: Pneumonia. PRIMARY ONCOLOGIST: Dr. Feliz. HISTORY OF PRESENT ILLNESS: A 66-year-old female with CLL on oral chemo, hypothyroidism, hypogammaglobulinemia, presenting with 1 day of cough, fever and severe weakness. She started feeling poorly yesterday and had a fever to 103 last night. She was chilled and nauseated. No diarrhea or vomiting. Denies any ill contacts. Has reported headaches and myalgias. She was hospitalized in [place] over [facility] for 4 days, received 4 days of antibiotics and was discharged on Augmentin and another antibiotic for a week. She also has a chronic abdominal mass secondary to CLL that is compressing the IVC. This intermittently becomes black and blue and painful. She has been evaluated by Dr. Kirby and she has decided she wants to have resection. REVIEW OF SYSTEMS: I completed a 10-point review of systems, negative except as noted in HPI. PAST MEDICAL HISTORY: 1. CLL diagnosed 2007. She was treated until 2011 with bendamustine plus rituximab with significant improvement. April 2013, she had recurrence, seen at [facility] and started on Ibrutinib. She started on a trial with TTI-61, but progressed through treatment. She is currently on Imbruvica. 2. Hypogammaglobulinemia, due for IVIG on . 3. Abdominal mass secondary to CLL compressing IVC, left-sided mass adjacent of the psoas muscle. PAST SURGICAL HISTORY: Port placement August 2016, , hysterectomy. FAMILY HISTORY: Dad at age 99. SOCIAL HISTORY: Lives in [place] with daughter Irene. No tobacco, alcohol or illicits. ALLERGIES: Quinolones. HOME MEDICATIONS: [place] thyroid 60 mg daily, Imbruvica 420 mg daily, Acyclovir 40 mg twice daily. PHYSICAL EXAMINATION: VITAL SIGNS: Temperature 39.2, blood pressure 139/75, heart rate 106. GENERAL: Ill-appearing pale, fatigued. HEENT: PERRLA. Dry mucous membranes CARDIOVASCULAR: Tachy, regular, no murmurs, gallops, rubs. LUNGS: Clear. No crackles or wheezing. ABDOMEN: Distended but soft. Minimal tenderness. No hematoma over flank. Positive bowel sounds. : No suprapubic and suprapubic or CVA tenderness. MUSCULOSKELETAL: 5/5 upper and lower extremity strength. NEURO: 2 through 12 intact. PSYCH: Alert and oriented x3. Flat affect. LABORATORY DATA: WBC is 43, most recent was 60 on 04/08/2017, hemoglobin is 6.8 , hematocrit 22, platelets 239. INR is 1.18, PT is 15. Sodium 144, potassium 3.9, chloride 106, BUN 13, creatinine 0.6, glucose 93, total bilirubin 1.5. Procalcitonin is pending. Lactate is 2.3, now 1.6. + Influenza A Chest x-ray is personally reviewed by me. Spine, right middle lobe infiltrate. No effusion. ASSESSMENT AND PLAN: 1. Severe sepsis: due to Influenza A. Minimal RML infiltrate on CXR likely pneumonitis, not PNA with negative procalcitonin. She is not neutropenic at this time. 2. Influenza A: Tamiflu 3. Fever: due to flu. Negative UA, negative procalcitonin, so not bacterial PNA. Blood cultures pending 4. Leukocytosis: due to CLL 5. Normocytic anemia, likely secondary to chemotherapy. Denies bleeding. Transfuse 2 units. 6. CLL: will hold given severe sepsis 7. Hypogammaglobulinemia: due for IVIG on , check levels and can dose tomorrow 6. Tachycardia; due to fever.dehydration. Continue IV fluids. 7. Lactic acidosis: Secondary to decreased p.o. intake, infection. This resolved with IV fluids. 8. GERD: Pepcide 9. Constipation: bowel regimen 10. Acute hypoxic respiratory failure: due to flu 10. Diet: Regular. 11.. DVT prophylaxis: SCD's with anemia 12: Hypotension: new since on floor. Lactate normalized, mentating and making urine. If does not respond to further IVFs, will transfer to ICU Critical care time spent: 60 min evaluating patient, reviewing meds and d/w Dr. Moore DISPOSITION: Patient warrants inpatient admission given acute sepsis, warranting IV antibiotics, fluids and Oncology consultation. /[id number]/MODL MTDD
[2017-04-23] MEDS: ACETAMINOPHEN 325 MG TAB PO PRN ×2 (10:42→21:40)
[2017-04-23] MEDS: LR 1,000 ML IV SCH (10:43)
[2017-04-23] MEDS: OSELTAMIVIR PHOSPHATE 75 MG CAP PO SCH ×2 (11:00→17:41)
[2017-04-23] MEDS ORDERED: ALBUTEROL 3 ML DEYVIAL IH PRN (12:09)
[2017-04-23] MEDS ORDERED: LACTULOSE 20 GM/30 ML UDCUP PO PRN (12:10)
[2017-04-23] MEDS ORDERED: BISACODYL 10 MG SUPP PR PRN (12:10)
[2017-04-23] MEDS ORDERED: POLYETHYLENE GLYCOL 3350 17 GM PKT PO PRN (12:10)
[2017-04-23] MEDS ORDERED: MAGNESIUM HYDROXIDE 30 ML UDCUP PO PRN (12:10)
[2017-04-23] MEDS ORDERED: FAMOTIDINE 20 MG TAB PO SCH (12:15)
[2017-04-23] MEDS ORDERED: LR 500 ML IV SCH (14:00)
[2017-04-23] MEDS ORDERED: CEFEPIME HCL 2 GM in NS 100 ML IV SCH (14:00)
[2017-04-23] MEDS ORDERED: NS 1,000 ML IV ONE (14:06)
--- NOTE | 2017-04-23 14:30 | PDMN ---
Medical Necessity Medical necessity: Pt meets IP criteria per MD; est los >2 mn for eval/tx of acute sepsis r/t influenza A, possible pneumonitis, normocytic anemia secondary to chemo requiring transfusion; admit for further workup/monitoring, IV abx, IVFs, blood cxs & Oncology consult; hx chronic lymphocytic leukemia on oral chemo, hypogammaglobulinemia due for IVIG on , abdominal mass secondary to CLL compressing IVC; per H&P & order 04/23/17
[2017-04-23] MEDS ORDERED: NS 500 ML IV ONE (15:44)
[2017-04-23] MEDS: guaiFENesin/CODEINE PHOS 10 ML UDCUP PO PRN (17:41)
[2017-04-23] MEDS ORDERED: PANTOPRAZOLE SODIUM 40 MG TAB PO ONE (18:45)
[2017-04-23] MEDS ORDERED: CALCIUM CARBONATE 500 MG CHEWABLE TAB PO PRN (19:24)
[2017-04-23] MEDS: BENZONATATE 100 MG CAP PO PRN (19:58)
[2017-04-23] MEDS: ACYCLOVIR 400 MG TAB PO SCH (19:59)
[2017-04-23] MEDS ORDERED: IBUPROFEN 600 MG TAB PO PRN (20:03)
[2017-04-23] MEDS: FAMOTIDINE 20 MG TAB PO SCH (20:11)
[2017-04-23] MEDS: SENNOSIDES/DOCUSATE SODIUM TAB PO SCH (20:11)
[2017-04-23] MEDS: ZOLPIDEM TARTRATE 5 MG TAB PO PRN (21:39)
[2017-04-24 04:30] LABS: PLATELET COUNT 197 10^3/uL (150-400)
[2017-04-24] MEDS ORDERED: THYROID 60 MG TAB PO SCH (06:00)
--- NOTE | 2017-04-24 08:26 | HOSPPROG ---
Hospitalist Progress Note Assessment/Plan: #Influenza A: Tamiflu. No PNA on CXR, negative procalcitonin #Acute hypoxic respiratory failure: due to above #CCL: cont oral chemo. #Abdominal mass: related to CLL. Onc offered biopsy, but she declined #Hypotension: resolved with aggressive IVFs #LE edema: due to fluids and blood. Stop IVFs and monitor #Normocytic anemia: 2 units RBCs 04/23 #Hypogammaglobulinemia: IVIG 20mg today #Fever: due to flu. Negative blood cultures #DVT ppx: SCDs #Disp: warrants inpt admission with hypoxia. Requires IVIG, serial labs Subjective: more energy today. Less SOB Objective: Vital Signs Temp Pulse Resp BP Pulse Ox 36.5 C 74 18 100/69 93 04/24/17 03:54 04/24/17 03:54 04/24/17 03:54 04/24/17 03:54 04/24/17 03:54 Laboratory Results 04/24/17 04:00 04/24/17 04:00 04/23/17 04/24/17 04/25/17 05:59 05:59 05:59 Intake Total 5339 Output Total 1000 Balance 4339 PT 15.2 SEC (12.0-15.0) H 04/23/17 08:00 INR 1.18 (0.83-1.16) H 04/23/17 08:00 - Physical Exam Constitutional: other (appears a bit brighter today) Eyes: PERRL Ears, Nose, Mouth, Throat: dry mucous membranes Cardiovascular: regular rate and rhythym, no murmur, rub, or gallop, edema (+1 ankle edema, BL) Respiratory: No expiratory wheeze, No inspiratory crackles Gastrointestinal: normoactive bowel sounds, distension Genitourinary: no bladder fullness Skin: warm Musculoskeletal: full muscle strength Neurologic: AAOx3, CN II-XII Intact Psychiatric: flat affect ICD10 Worksheet Patient Problems: Problems Problem Status Onset Pneumonia Acute Anaerobic bacteremia Acute Deep incisional surgical site infection Acute
[2017-04-24] MEDS: LR 1,000 ML IV SCH (08:44)
[2017-04-24] MEDS: OSELTAMIVIR PHOSPHATE 75 MG CAP PO SCH ×2 (08:45→18:08)
[2017-04-24] MEDS: ACYCLOVIR 400 MG TAB PO SCH ×2 (08:45→21:49)
[2017-04-24] MEDS: FAMOTIDINE 20 MG TAB PO SCH ×2 (08:46→08:52)
[2017-04-24] MEDS ORDERED: Ibrutinib [Imbruvica] 420 MG PO SCH (09:00)
[2017-04-24] MEDS: SENNOSIDES/DOCUSATE SODIUM TAB PO SCH ×2 (09:41→21:50)
[2017-04-24] MEDS ORDERED: ACETAMINOPHEN 500 MG TAB PO SCH (11:15)
[2017-04-24] MEDS ORDERED: diphenhydrAMINE 25 MG CAP PO SCH (11:15)
[2017-04-24] MEDS ORDERED: IMMUNE GLOBULIN 20 GM/200 ML VIAL IV SCH (11:15)
--- NOTE | 2017-04-24 12:08 | GCON ---
[f rep st] CONSULTATION HEMATOLOGY ONCOLOGY CONSULTATION DATE OF CONSULTATION: 04/24/2017 REASON FOR CONSULTATION: Chronic lymphocytic leukemia. HISTORY OF PRESENT ILLNESS: Atiya is a pleasant 66-year-old female followed by my partner, Dr. Vivian Feliz. She was initially diagnosed with chronic lymphocytic leukemia in 04/2009. She was treated at that time with 6 cycles of bendamustine and rituximab. She developed progressive disease in 04/2013 . At that time, she was noted to have an intraabdominal mass. A CT-guided biopsy of this mass locat ed primarily in the retroperitoneum confirmed CLL. The patient was given ibrutinib 04/2013 to 4 with improvement in her CLL but no improvement in her mass. She developed progressive disease in 2 015. She was seen in 2nd opinion consultation at [facility] at that time. Treatment with idelalisi b and rituximab was recommended. The patient eventually chose to go on a clinical trial with obinutu zumab and venetoclax. She developed disease progression in 09/2016. She was then treated on a 2nd c linical trial with [id number]-621, but had progressive disease after 5 weeks of treatment and was taken off the medication. More recently, she was put back on ibrutinib. Her white blood cell count has fallen significantly while on ibrutinib. Her most recent CT scans showed a persistent 18 cm abdominal mass . Her case has been presented at [facility] multidisciplinary tumor Board and attempt a t surgical resection of the mass for a more definitive diagnosis was recommended. The patient reports that she sought 2nd opinion consultation in [place] at [facility]. She was told that they recommended again surgical resection and recommended repeat biopsy instead. S he has planned to discuss this with Dr. Feliz at her next appointment. She was recently hospitalized at [facility] in [place] with a pneumonia treated with ant ibiotics with clinical improvement. The patient presented to the hospital yesterday morning with a complaint of cough, fever and weakness . She had a fever of 103 overnight. She was febrile in the ER. Further testing revealed positivity for influenza type A H3. The patient has been started on Tamiflu. On presentation to the hospital, she was significantly anemic with a hemoglobin of 6.8. She was give n 2 units of packed red cells. Her hemoglobin today is up to 7.6, and she feels much better. Her ite blood cell count continues to decline. She denies chest pain or dyspnea at rest. She denies purulent sputum. She does have some mild abdom inal discomfort related to her mass. PAST MEDICAL HISTORY: 1. Chronic lymphocytic leukemia, as outlined above. 2. Hypothyroidism. PHYSICAL EXAMINATION: GENERAL: The patient is using supplemental oxygen. She is sitting comfortabl y in a chair in no acute distress. EYES: There is no scleral icterus. CARDIAC: Heart is regular w ithout murmur. LUNGS: Clear bilaterally without wheeze, rhonchi, or crackles. Taking a deep breath produces coughing. No flank tenderness bilaterally. ABDOMEN: Rpav-lt-bowlndicfq distended with a palpable abdominal mass present midline. EXTREMITIES: Trace bilateral pedal edema. NEUROLOGIC: Pat ient alert, oriented, and appropriate. SKIN: No visible skin rash. LABORATORY STUDIES: CBC from today, white count 30.6, hemoglobin 7.6, platelet count is 197,000, abs olute neutrophil count is 600. Sodium 143, potassium 3.8, chloride 112, bicarbonate 23, BUN 10, crea tinine 0.7, calcium 7.6. Influenza testing, as outlined above. Urinalysis shows no significant whit e cells. IMAGING STUDIES: A chest done in the emergency department yesterday reveals a mild infiltrate in the posterior medial right lower lobe. A prior chest CT scan done on 04/10, did not show any significan t parenchymal lung changes and suggested the possibility that the patient's abdominal mass has increa sed in size. IMPRESSION: 1. Chronic lymphocytic leukemia. Patient currently on ibrutinib 140 mg once daily. 2. Abdominal mass of unclear etiology. 3. Hypogammaglobulinemia, secondary to #1 (patient receives monthly IVIG therapy). 4. Neutropenia secondary to #1. 5. Anemia, secondary to #1. 6. Influenza A infection. PLAN: Atiya has been admitted with fever, lethargy, and a cough. She has tested positive for influe nza A and has been started on Tamiflu. She does feel somewhat better today. Atiya is due for IVIG. She would like to receive this while in the hospital. Given that she is clin ically ill, I think it is reasonable to give her a dose of IVIG today. In the outpatient setting, christian hudson gets 20 g every month. She will be given 20 g of IVIG today. She is not currently on antibiotic therapy and appears to be clinically improving on Tamiflu, thus, i n light of her symptoms, clinical improvement and positive influenza A test, I recommend continuing h er current treatment for now. We discussed obtaining a second CT-guided biopsy of her intraabdominal mass during this hospital stay . Dr. Feliz had favored surgical excision in an attempt to get more tissue. The patient is declini ng this based on the consultation she had at [facility]. She declines a biopsy currently, stating she would like to discuss this in more detail with Dr. Feliz before proceeding and stating that she wants to feel better before undergoing any procedures. I anticipate continued improvement. If she does not continue to improve clinically, I would consider adding antibiotic therapy and obtaining an Infectious Disease consult. She is still anemic, though minimally symptomatic, thus, will hold off on further blood transfusion t amilcar. Her CBC will be rechecked tomorrow. Dr. Feliz is aware of her hospital admission. The patient's questions were answered and her care plan was discussed with nursing staff. Total time for today's visit was approximately 45 minutes of which greater than 50% was spent in coun seling and care coordination. /[id number]/MODL
[2017-04-24] MEDS: TAGAMET 200 MG PO SCH ×2 (12:49→21:50)
[2017-04-24] MEDS ORDERED: TAGAMET 200 MG PO SCH (21:00)
[2017-04-24] MEDS: ZOLPIDEM TARTRATE 5 MG TAB PO PRN (21:49)
[2017-04-24] MEDS: BENZONATATE 100 MG CAP PO PRN (21:49)
[2017-04-25] MEDS: THYROID 60 MG TAB PO SCH (05:34)
[2017-04-25] MEDS: TAGAMET 200 MG PO SCH ×2 (07:55→20:46)
[2017-04-25] MEDS: OSELTAMIVIR PHOSPHATE 75 MG CAP PO SCH ×2 (07:55→18:04)
[2017-04-25] MEDS: ACYCLOVIR 400 MG TAB PO SCH ×2 (07:55→20:18)
[2017-04-25] MEDS: SENNOSIDES/DOCUSATE SODIUM TAB PO SCH ×2 (07:58→20:46)
--- NOTE | 2017-04-25 11:24 | SOAPPROG ---
SOAP Progress Note Assessment/Plan: Assessment: 1) CLL (currently on Ibrutinib) 2) Hypogammaglobulinemia secondary to #1 (s/p IVIG 04/24/17) 3) Influenza A 4) Intra abdominal mass 5) Pancytopenia secondary to #1 Plan: Overall she is better. No current evidence of a bacterial process. Continue Tamiflu. Case d/w nursing today. Will have her ambulate in the halls today without O2 and attempt to wean the o2. Possible d/c tomorrow. She will continue Ibrutinib. She received IVIG (20 g) yesterday. Will repeat a CBC tomorrow. Again discussed option of biopsy of her abdominal mass during this hospital stay. She again declines, stating that she wants to feel better first. Will plan this as an outpatient. She will see Dr. Feliz as an outpatient when d/c. Her questions were answered. 04/25/17 11:19 Subjective: Feels somewhat better. No fevers. Non productive cough persists. Less fatigued. Objective: Vital Signs Temp Pulse Resp BP Pulse Ox 36.8 C 66 18 108/54 L 97 04/25/17 08:51 04/25/17 08:51 04/25/17 08:51 04/25/17 08:51 04/25/17 08:51 Laboratory Results 04/24/17 04:00 04/24/17 04:00 04/24/17 04/25/17 04/26/17 05:59 05:59 05:59 Intake Total 5339 1404 Output Total 1000 Balance 4339 1404 PT 15.2 SEC (12.0-15.0) H 04/23/17 08:00 INR 1.18 (0.83-1.16) H 04/23/17 08:00 - Time Spent With Patient Time Spent With Patient: 25 minutes Physical Exam - Physical Exam General Appearance: alert, no apparent distress EENT: PERRL/EOMI Respiratory: other (clear. Deep breathing produces cough) Cardiac/Chest: regular rate, rhythm Neuro/Psych: alert, normal mood/affect ICD10 Worksheet Patient Problems: Problems Problem Status Onset Pneumonia Acute Anaerobic bacteremia Acute Deep incisional surgical site infection Acute
[2017-04-25] MEDS ORDERED: FUROSEMIDE 20 MG TAB PO ONE (12:15)
--- NOTE | 2017-04-25 12:19 | HOSPPROG ---
Hospitalist Progress Note Assessment/Plan: New Patient Encounter 66 yo female with hx of CLL who was recently treated for pneumonia in an outside hospital admitted to [facility] with acute respiratory failure due to influenza A. Has improved on Tamiflu. Not on abx #Influenza A: Tamiflu. No PNA on CXR, negative procalcitonin #Acute hypoxic respiratory failure: due to above #CCL: cont oral chemo. #Abdominal mass: related to CLL. Onc offered biopsy, but she declined #Hypotension: resolved with aggressive IVFs #LE edema: due to fluids and blood. #Normocytic anemia: s/p 2 units RBCs 04/23 #Hypogammaglobulinemia: s/p IVIG 20mg on 04/24 #Fever: due to flu. Negative blood cultures #abdominal Mass, unclear etiology #DVT ppx: SCDs Plan: -Give Lasix x 1 -cont Tamiflu -Ambulate in halls -Wean off O2 -Keep inpt, likely d/c tomorrow -will need f/u with Dr. Vivian Feliz to discuss abdominal mass Subjective: Feels better. Still with some cough and SOB. Requiring supplemental O2. Objective: Vital Signs Temp Pulse Resp BP Pulse Ox 36.8 C 66 18 108/54 L 97 04/25/17 08:51 04/25/17 08:51 04/25/17 08:51 04/25/17 08:51 04/25/17 08:51 Laboratory Results 04/24/17 04:00 04/24/17 04:00 04/24/17 04/25/17 04/26/17 05:59 05:59 05:59 Intake Total 5339 1404 Output Total 1000 Balance 4339 1404 PT 15.2 SEC (12.0-15.0) H 04/23/17 08:00 INR 1.18 (0.83-1.16) H 04/23/17 08:00 - Physical Exam Constitutional: no apparent distress Eyes: PERRL, EOMI Ears, Nose, Mouth, Throat: moist mucous membranes, hearing normal Cardiovascular: regular rate and rhythym, edema (1 + bilateral LE) Respiratory: rhonchi Gastrointestinal: normoactive bowel sounds, soft, non-tender abdomen Genitourinary: no bladder fullness Skin: warm Musculoskeletal: full muscle strength Neurologic: AAOx3 Psychiatric: interacting appropriately, not anxious, not encephalopathic ICD10 Worksheet Patient Problems: Problems Problem Status Onset Pneumonia Acute Anaerobic bacteremia Acute Deep incisional surgical site infection Acute
[2017-04-25 17:03] LABS: PLATELET COUNT 196 10^3/uL (150-400)
[2017-04-25] MEDS: BENZONATATE 100 MG CAP PO PRN (19:45)
[2017-04-25] MEDS: ZOLPIDEM TARTRATE 5 MG TAB PO PRN (22:16)
[2017-04-25] MEDS: guaiFENesin/CODEINE PHOS 10 ML UDCUP PO PRN (22:16)
[2017-04-26] MEDS: THYROID 60 MG TAB PO SCH (05:57)
[2017-04-26 08:09] VITALS: RESP 18
[2017-04-26] MEDS: ACYCLOVIR 400 MG TAB PO SCH (10:40)
[2017-04-26] MEDS: OSELTAMIVIR PHOSPHATE 75 MG CAP PO SCH (10:40)
[2017-04-26] MEDS: SENNOSIDES/DOCUSATE SODIUM TAB PO SCH (10:40)
--- NOTE | 2017-04-26 11:55 | PDDCSUM ---
Discharge Summary Discharge Summary: 66 yo female with hx of CLL who was recently treated for pneumonia in an outside hospital admitted to [facility] with acute respiratory failure due to influenza A. Has improved on Tamiflu. Not on abx Has mild fluid overload after fluid administration, diuresed well with one time Lasix. No Euvolemic Now on RA Ready for d/c DDX: #Influenza A: Tamiflu. No PNA on CXR, negative procalcitonin #Acute hypoxic respiratory failure: due to above, resolved #CCL: cont oral chemo. #Abdominal mass: related to CLL. Onc offered biopsy, but she declined. She will f/u with Dr. Vivian Ferro to discuss #Hypotension: resolved with aggressive IVFs #LE edema: due to fluids and blood. #Normocytic anemia: s/p 2 units RBCs 04/23 #Hypogammaglobulinemia: s/p IVIG 20mg on 04/24 #Fever: due to flu. Negative blood cultures Exam: NAD AAOX3 RRR CTA B S/NT/ND NO LE EDEMA MEDS: SEE MED REC, TAMIFLU, CODEINE COUGH SYRUP F/U: WITH DR. FERRO IN ONE WEEK TOTAL TIME SPENT ON D/C IS 35 MINS
[2017-04-26 11:57] VITALS: BP 132/73; PULSE 68; TEMP 97.8; O2SAT 95
--- NOTE | 2017-04-26 12:15 | ASMTCMCOM ---
CM Note CM Note Notes: Pt with hx of CLL admitted with flu. Pt improved on tamiflu and will DC today with no needs. Date Signed: 04/26/2017 12:15 PM Electronically Signed By:Annel Rob LCSW
[2017-04-26] MEDS: TAGAMET 200 MG PO SCH (12:19)
--- NOTE | 2017-04-26 16:58 | ASDISCHSUM ---
Discharge Information Plan Status: Medically Cleared to Leave: Discharge Date:04/26/2017 02:30 PM CM D/C Disposition: ADT D/C Disposition:Home, Routine, Self-Care Projected Discharge Date:04/26/2017 02:30 PM Transportation at D/C: Discharge Delay Reason: Follow-Up Date:04/26/2017 02:30 PM Discharge Slot: Final Diagnosis: Placement Information Patient Contact Information Contact Name:BENTON Relationship:Daughter Address:[address] City:[place] Alternate Phone: [facility] Code:[place] [address] Email: Financial Information Financial Class: Primary Plan Desc:MEDICARE INPATIENT Primary Plan Number:[id number] Secondary Plan Desc: [facility] Secondary Plan Number:[id number] Assessment Information [facility] CM Progress Note CM Note CM Note Notes: Pt with hx of CLL admitted with flu. Pt improved on tamiflu and will DC today with no needs. Date Signed: 04/26/2017 12:15 PM Electronically Signed By:Annel Rob LCSW Intervention Information Intervention Type:*IM-Signed Date of Service:04/26/2017 01:57 PM Patient Type:Inpatient Staff Member:Anna Ballard Hours: Discipline: Severity: Comment:
--- NOTE | 2017-05-01 07:58 | PQFORM ---
PHYSICIAN QUERY FORM Needs Your Response This query form is being sent to you to assure this patient record is coded properly. Please respond to the question below: BEAN PICKER QUESTION: Dr Greenfield Severe Sepsis was documented on the H/P however it was not carried through in the Progress Notes or on the Discharge. Also there was no documentation stating that Severe Sepsis had been Ruled Out. Please clarify if this patient had Severe Sepsis. ___ Yes ___ No ___ Other (please specify ) _x__ Unable to determine Thank You Kaelyn FERNANDEZ Media Manager INSTRUCTIONS FOR RESPONSE: Answer question by clicking on the "Edit Document" button. Move cursor to area below the stars. When complete, hit "Save." Click on the "Sign" button, then click "Sign" again. Type in your PIN and hit "Enter." MTDD
== END 2017-04-26 14:30 | disposition home or self-care (01) | DRG 193 ==
LOC: F1N 09:57
PROVIDERS: ADMIT Internal Medicine; ATTEND Internal Medicine
DX: J10.1 Influenza due to other identified influenza virus with other respiratory manifestations (principal); J96.01 Acute respiratory failure with hypoxia; C91.10 Chronic lymphocytic leukemia of B-cell type not having achieved remission; D80.1 Nonfamilial hypogammaglobulinemia; E03.9 Hypothyroidism, unspecified; D64.81 Anemia due to antineoplastic chemotherapy; R19.00 Intra-abdominal and pelvic swelling, mass and lump, unspecified site
CPT/HCPCS: 82784-90; J1459; J1642; J2185; J3370; P9016; P9040

== ENCOUNTER → 2017-06-07 | Outpatient (CLI) | payer OTHER, BC | LOC: FIMAGING 14:23 | PROVIDERS: ATTEND Internal Medicine Hematology & Oncology | DX: J98.4 Other disorders of lung (principal) ==

== ENCOUNTER 2017-08-23 16:45 | Inpatient (IN) | payer OTHER, BC ==
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
[2017-08-23] MEDS ORDERED: DIAZEPAM 10 MG/2 ML SYR IVP ONE (17:04)
[2017-08-23] MEDS ORDERED: HYDROmorphONE/DILAUDID 2 MG/ML INJ IVP ONE ×2 (18:07→21:40)
[2017-08-23] MEDS ORDERED: LET GEL TOPICAL 1 EA SYR TP ONE (18:32)
--- NOTE | 2017-08-23 19:26 | CPEKG ---
Heart Rate: 67 RR Interval: 896 P-R Interval: 152 QRSD Interval: 102 QT Interval: 420 QTC Interval: 444 P [place]: 59 QRS [place]: 48 T Wave [place]: 0 EKG Severity - BORDERLINE ECG - EKG Impression: SINUS RHYTHM EKG Impression: PROBABLE LEFT ATRIAL ABNORMALITY Electronically Signed By: Kishore Davidson 23-Aug-2017 19:29:31
[2017-08-23] MEDS ORDERED: HYDROmorphONE/DILAUDID 1 MG/ML INJ IVP ONE (19:34)
[2017-08-23] MEDS ORDERED: HYDROmorphONE/DILAUDID 2 MG/ML INJ ONE (21:38)
[2017-08-23] MEDS ORDERED: ONDANSETRON DISINTEGRATING 4 MG TAB PO PRN (22:34)
[2017-08-23] MEDS ORDERED: ONDANSETRON 4 MG/2 ML VIAL IVP PRN (22:34)
[2017-08-23] MEDS ORDERED: ACETAMINOPHEN 325 MG TAB PO PRN (22:34)
[2017-08-23] MEDS: HYDROmorphone HCL/NS 0.5 MG/ML SYR IVP PRN (22:55)
[2017-08-23] MEDS: HYDROmorphONE/DILAUDID 2 MG TAB PO PRN (22:56)
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
[2017-08-24] MEDS: HYDROmorphone HCL/NS 0.5 MG/ML SYR IVP PRN ×3 (01:33→23:44)
[2017-08-24] MEDS ORDERED: BUPIVACAINE 0.5% 30 ML SDV ONE (03:43)
[2017-08-24] MEDS ORDERED: ROPIVACAINE HCL 20 MG/10 ML INJ EP ONE (03:43)
[2017-08-24] MEDS: HYDROmorphONE/DILAUDID 2 MG TAB PO PRN ×2 (03:51→21:39)
[2017-08-24 05:22] LABS: PLATELET COUNT 143 10^3/uL (150-400)
[2017-08-24] MEDS ORDERED: CLINDAMYCIN 900 MG/DEXTROSE/50 ML BAG IV ONE (06:24)
--- NOTE | 2017-08-24 06:27 | PDANEPAE ---
ANE Past Medical History - Pulmonary History Hx Oxygen in Use at Home: No Hx Sleep Apnea: No Sleep Apnea Screening Result - Last Documented: Negative - Endocrine History Hx Diabetes: No - Chronic Pain History Chronic Pain: No ANE Review of Systems Review of Systems: ANE Patient History - Allergies Allergies/Adverse Reactions: cefdinir Allergy (Severe, Verified 08/23/17 16:47) Anaphylaxis Quinolones Allergy (Verified 08/23/17 16:47) NAUSEA, ITCHING, RASH - Home Medications Home Medications: Thyroid [[place] Thyroid 60 MG (*)] 60 mg PO DAILY06 09/17/14 [Last Taken ] Ibrutinib [Imbruvica] 420 mg PO DAILY 11/29/16 [Last Taken 08/23/17] - NPO status NPO Since - Liquids (Date): 08/24/17 NPO Since - Liquids (Time): 03:00 NPO Since - Solids (Date): 08/23/17 - Smoking Hx Smoking Status: Never smoked - Alcohol Use Alcohol Use: None ANE Labs/Vital Signs - Labs Result Diagrams: 08/24/17 05:00 08/24/17 05:00 - Vital Signs Blood Pressure: 123/76 Heart Rate: 65 Respiratory Rate: 16 O2 Sat (%): 95 Height: 167.64 cm Weight: 68.946 kg ANE Physical Exam - Airway Neck exam: FROM Mallampati Score: Class 3 - Pulmonary Pulmonary: no respiratory distress - Cardiovascular Cardiovascular: regular rate and rhythym - ASA Status ASA Status: III, E ANE Anesthesia Plan Anesthesia Plan: general endotracheal anesthesia
[2017-08-24] MEDS ORDERED: LIDOCAINE 2% 100 MG/5 ML SYR ONE (06:31)
[2017-08-24] MEDS ORDERED: METOCLOPRAMIDE 10 MG/2 ML VIAL ONE (06:31)
[2017-08-24] MEDS ORDERED: ROCURONIUM 50 MG/5 ML VIAL ONE (06:31)
[2017-08-24] MEDS ORDERED: PROPOFOL 200 MG/20 ML VIAL ONE (06:31)
[2017-08-24] MEDS ORDERED: CLINDAMYCIN 900 MG/DEXTROSE 50 ML IV ONE (06:33)
[2017-08-24] MEDS ORDERED: SUGAMMADEX SODIUM 200 MG/2 ML VIAL IVP ONE (07:26)
[2017-08-24] MEDS ORDERED: ONDANSETRON 4 MG/2 ML VIAL IVP PRN (07:55)
[2017-08-24] MEDS ORDERED: ALBUTEROL 3 ML DEYVIAL IH PRN (07:55)
[2017-08-24] MEDS ORDERED: NALOXONE HCL 0.4 MG/ML INJ IVP PRN (07:55)
--- NOTE | 2017-08-24 07:56 | POSTANESTH ---
Post Anesthetic Evaluation Cardiovascular Status: Similar to Pre-Op Cond Respiratory Status: Similar to Pre-op Cond. Level of Consciousness/Mental Status: Mildly Sleepy, Arousable Pain Control: Adequate, Prn Tx Ordered Nausea/Vomiting Control: Adequate, Prn Tx Ordered Complications Possibly Related to Anesthesia: None Noted
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
[2017-08-24] MEDS ORDERED: fentaNYL 100 MCG/2 ML INJ ONE (08:03)
[2017-08-24] MEDS: fentaNYL 100 MCG/2 ML INJ IVP PRN ×2 (08:05→08:42)
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
[2017-08-24] MEDS: HYDROCODONE/APAP 5/325 TAB PO PRN ×3 (09:33→17:04)
[2017-08-24] MEDS: D5W 1/2 NS W/ 20 KCl/L 1,000 ML IV SCH ×2 (09:34→21:40)
[2017-08-24] MEDS: ENOXAPARIN 40 MG/0.4 ML SYR SC SCH (09:34)
[2017-08-24] MEDS: CLINDAMYCIN 600 MG/DEXTROSE 50 ML IV SCH ×2 (13:32→21:40)
[2017-08-24] MEDS ORDERED: BISACODYL 10 MG SUPP PR PRN (16:05)
[2017-08-24] MEDS ORDERED: POLYETHYLENE GLYCOL 3350 17 GM PKT PO PRN (16:05)
[2017-08-24] MEDS ORDERED: MAGNESIUM HYDROXIDE 30 ML UDCUP PO PRN (16:05)
[2017-08-24] MEDS ORDERED: LACTULOSE 20 GM/30 ML UDCUP PO PRN (16:05)
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
--- NOTE | 2017-08-24 16:57 | HOSPPROG ---
Hospitalist Progress Note Assessment/Plan: * Hip fracture s/p percutaneous screws -Lovenox * CLL -continue Ibrutinib -schedule for IVIG next Saturday * Pelvic mass -resection pending * Anemia -recheck AM Subjective: Feels great post surgery Objective: Vital Signs Temp Pulse Resp BP Pulse Ox 36.6 C 61 12 102/62 100 08/24/17 11:34 08/24/17 11:34 08/24/17 11:34 08/24/17 11:34 08/24/17 11:34 Laboratory Results 08/24/17 05:00 08/24/17 05:00 08/23/17 08/24/17 08/25/17 05:59 05:59 05:59 Intake Total 1200 Output Total 200 2 Balance -[address] - hip fracture and pelvic mass, LAD EKG viewed, my personal interpretation is - NSR, no ischemic change - Physical Exam Constitutional: no apparent distress, appears nourished, not in pain Cardiovascular: regular rate and rhythym, no murmur, rub, or gallop Respiratory: no respiratory distress, no rales or rhonchi, clear to auscultation Gastrointestinal: normoactive bowel sounds, soft, non-tender abdomen, no palpable masses Skin: no rashes or abrasions, no fluctuance, no induration Neurologic: AAOx3, sensation intact bilaterally Psychiatric: interacting appropriately, not anxious, not encephalopathic, thought process linear ICD10 Worksheet Patient Problems: Problems Problem Status Onset Closed intertrochanteric fracture of left hip Acute Anaerobic bacteremia Acute Deep incisional surgical site infection Acute Pneumonia Acute
[2017-08-24] MEDS: SENNOSIDES/DOCUSATE SODIUM TAB PO SCH (21:39)
[2017-08-25] MEDS: HYDROmorphONE/DILAUDID 2 MG TAB PO PRN ×4 (03:27→20:48)
[2017-08-25] MEDS: CYCLOBENZAPRINE 10 MG TAB PO PRN ×4 (03:55→20:48)
[2017-08-25] MEDS: CLINDAMYCIN 600 MG/DEXTROSE 50 ML IV SCH ×2 (05:54→15:11)
[2017-08-25 06:14] LABS: PLATELET COUNT 118 10^3/uL (150-400)
--- NOTE | 2017-08-25 07:37 | SOAPPROG ---
SOAP Progress Note Assessment/Plan: Assessment: POD 1. Postop pain within normal limits. Plan: 08/25/17 07:34 PT/OT Toe touch weight bear. She is worried about stairs at home Rehab consideration for patient safety 08/25/17 07:37 Encourage heel slides and quad activation sets in bed Subjective: POD 1. Thigh painful Objective: Vital Signs Temp Pulse Resp BP Pulse Ox 36.9 C 72 16 125/70 H 95 08/25/17 03:35 08/25/17 03:35 08/25/17 03:35 08/25/17 03:35 08/25/17 03:35 Laboratory Results 08/25/17 06:05 08/25/17 06:05 08/24/17 08/25/17 08/26/17 05:59 05:59 05:59 Intake Total 2350 Output Total 200 552 Balance -200 1798 Left thigh soft intact distal motor intact distal sensation Dressing CDI Skin intact and healthy Able to passive range 10-20 degree arc of knee Engages quad minimally ICD10 Worksheet Patient Problems: Problems Problem Status Onset Closed intertrochanteric fracture of left hip Acute Anaerobic bacteremia Acute Deep incisional surgical site infection Acute Pneumonia Acute
[2017-08-25] MEDS: IBRUTINIB 140 MG PO SCH (08:30)
[2017-08-25] MEDS: THYROID 60 MG TAB PO SCH (08:30)
[2017-08-25] MEDS: ENOXAPARIN 40 MG/0.4 ML SYR SC SCH (10:11)
[2017-08-25] MEDS: SENNOSIDES/DOCUSATE SODIUM TAB PO SCH ×2 (10:12→20:48)
--- NOTE | 2017-08-25 12:00 | ASMTCMCOM ---
CM Note CM Note Notes: Chart reviewed for discharge needs. Therapies currently pending. Lives alone. CM to follow. Plan: TBD Date Signed: 08/25/2017 12:00 PM Electronically Signed By:Ivett Live RN
[2017-08-25] MEDS: D5W 1/2 NS W/ 20 KCl/L 1,000 ML IV SCH (12:19)
[2017-08-25] MEDS ORDERED: IMMUN GLOB G(IGG)/GLY/IGA OV50 GAMMAGARD 30 GM/300 ML VIAL IV SCH (13:00)
[2017-08-25] MEDS ORDERED: IMMUNE GLOBULIN 20 GM/200 ML VIAL IV SCH (13:00)
[2017-08-25] MEDS ORDERED: IMMUNE GLOBULIN 5 GM/50 ML VIAL IV ONE (13:00)
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
--- NOTE | 2017-08-25 14:55 | HOSPPROG ---
Hospitalist Progress Note Assessment/Plan: * Hip fracture s/p percutaneous screws -toe touch weight bear -Lovenox for DVT prophylaxis -unclear indication for IV clindamycin - per ortho * CLL -continue Ibrutinib -d/w Dr. Olsen - IVIG in am before SNF discharge * Pelvic mass -resection pending * Anemia -stable Subjective: no complaints, more pain today now that block has worn off Objective: Vital Signs Temp Pulse Resp BP Pulse Ox 36.6 C 77 16 125/72 H 95 08/25/17 11:18 08/25/17 11:18 08/25/17 11:18 08/25/17 11:18 08/25/17 11:18 Laboratory Results 08/25/17 06:05 08/25/17 06:05 08/24/17 08/25/17 08/26/17 05:59 05:59 05:59 Intake Total 2350 Output Total 200 552 300 Balance -200 1798 -300 - Physical Exam Constitutional: no apparent distress, appears nourished, not in pain Cardiovascular: regular rate and rhythym, no murmur, rub, or gallop Respiratory: no respiratory distress, no rales or rhonchi, clear to auscultation Gastrointestinal: normoactive bowel sounds, soft, non-tender abdomen, no palpable masses Skin: no rashes or abrasions, no fluctuance, no induration Neurologic: AAOx3, sensation intact bilaterally Psychiatric: interacting appropriately, not anxious, not encephalopathic, thought process linear ICD10 Worksheet Patient Problems: Problems Problem Status Onset Closed intertrochanteric fracture of left hip Acute Anaerobic bacteremia Acute Deep incisional surgical site infection Acute Pneumonia Acute
[2017-08-25] MEDS ORDERED: IMMUNE GLOBULIN 20 GM/200 ML VIAL IV ONE (21:30)
[2017-08-26] MEDS: CLINDAMYCIN 600 MG/DEXTROSE 50 ML IV SCH ×2 (01:31→03:51)
[2017-08-26] MEDS: HYDROCODONE/APAP 5/325 TAB PO PRN ×3 (02:04→10:03)
[2017-08-26] MEDS: CYCLOBENZAPRINE 10 MG TAB PO PRN ×2 (05:21→13:51)
[2017-08-26] MEDS: IBRUTINIB 140 MG PO SCH (08:27)
[2017-08-26] MEDS: THYROID 60 MG TAB PO SCH (08:28)
[2017-08-26] MEDS: ENOXAPARIN 40 MG/0.4 ML SYR SC SCH (08:33)
[2017-08-26] MEDS: SENNOSIDES/DOCUSATE SODIUM TAB PO SCH (08:33)
[2017-08-26] MEDS ORDERED: IMMUNE GLOBULIN 20 GM/200 ML VIAL IV SCH (09:00)
[2017-08-26] MEDS: HYDROmorphONE/DILAUDID 2 MG TAB PO PRN ×2 (11:42→15:59)
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
[2017-08-26] MEDS ORDERED: CLINDAMYCIN 600 MG/DEXTROSE 50 ML IV SCH (13:00)
--- NOTE | 2017-08-26 13:44 | PDIAF ---
- Diagnosis Diagnosis: hip fracture Code Status: Full Code - Medication Management Discharge Medications: Medications to Continue on Transfer Thyroid [Deland Thyroid 60 MG (*)] 60 mg PO DAILY06 09/17/14 [Last Taken ] Ibrutinib [Imbruvica] 420 mg PO DAILY 11/29/16 [Last Taken 08/23/17] Cyclobenzaprine [Flexeril 10 MG (*)] 10 mg PO TID PRN #10 tab 08/26/17 [Last Taken Unknown] Enoxaparin [Lovenox 40 MG (*)] 40 mg SC DAILY #10 syr 08/26/17 [Last Taken Unknown] HYDROmorphone HCL [Dilaudid 2 mg (*)] 2 - 4 mg PO Q4 PRN #20 tab 08/26/17 [Last Taken Unknown] Polyethylene Glycol 3350 [Miralax 17 gm (*)] 17 gm PO DAILY PRN #10 pkt [Last Taken Unknown] Additional Medication Instructions: Lovenox for 14 days then stop Discharge Medications: Refer to the Discharge Home Medication list for PRN reason. - Orders Services needed: Physical Therapy, Occupational Therapy Isolation Type: Chemotherapy Isolation Diet Recommendation: no restrictions on diet Activity/Weight Bearing Restrictions: TT WB to left leg - Follow Up Care Current Providers and Referrals: NONE *PRIMARY CARE P,. [Primary Care Provider] - Masha Ramos MD [Medical Doctor] -
--- NOTE | 2017-08-26 14:05 | ASMTLACE ---
LACE Length of stay for Answers: 3 days current admission Acuity / Level of Answers: Yes Care: Did the patient have an inpatient admission? Comorbidities - select Answers: Any tumor (including all that apply lymphoma or leukemia) # of Emergency department Answers: 3-4 visits in the last 6 months Score: 11 Date Signed: 08/26/2017 02:05 PM Electronically Signed By:Ivett Live RN
--- NOTE | 2017-08-26 14:07 | ASMTCMCOM ---
CM Note CM Note Notes: Patient accepted to [facility]. Final orders via allscripts. group home counselor time is 4:30 pm. RN aware. CM available if other needs arise. Plan: To SNF rehab Date Signed: 08/26/2017 02:07 PM Electronically Signed By:Ivett Live RN
[2017-08-26 15:13] VITALS: BP 109/69
--- NOTE | 2017-08-26 16:36 | SOAPPROG ---
SOAP Progress Note Assessment/Plan: Assessment/Plan: POD 2 PT/OT Toe touch weight bear. Discuss rehab facility given home set-up to include stairs. Will likely go directly to rehab without home visit first. Case management/hospitalist to discuss further. Encourage heel slides and quad activation sets in bed Continue pain management Subjective: Pt doing well, sitting in chair with legs elevated. Pain reported in knee and surgical thigh, though received two Felt just prior to my visit. Concerned about "weak bones" secondary to chemo, that she thinks may have contributed to fracture. Worried. Objective: 08/26/17 16:32 08/26/17 16:38 Objective: Vital Signs Temp Pulse Resp BP Pulse Ox 36.6 C 78 16 109/69 96 08/26/17 15:12 08/26/17 15:12 08/26/17 15:12 08/26/17 15:12 08/26/17 15:12 Laboratory Results 08/25/17 06:05 08/25/17 06:05 08/25/17 08/26/17 08/27/17 05:59 05:59 05:59 Intake Total 2350 1472 Output Total 552 1100 1000 Balance 1798 372 -1000 No warm or erythema surgical thigh Surgical dressing dry, intact, clean TTP Left thigh around incision intact distal motor and sensation Cap refill <2 seconds ICD10 Worksheet Patient Problems: Problems Problem Status Onset Closed intertrochanteric fracture of left hip Acute Anaerobic bacteremia Acute Deep incisional surgical site infection Acute Pneumonia Acute
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
== END 2017-08-26 18:57 | DRG 481 ==
LOC: EDBD → EDUNIT# → CED 16:45 → CEDHOLD 19:04 → F1N 21:01 → OBSVTOIN 22:34
PROVIDERS: ADMIT Internal Medicine; ATTEND Internal Medicine
PROC: 0QH734Z Insertion of Internal Fixation Device into Left Upper Femur, Percutaneous Approach (ICD-10-PCS; principal; 2017-08-24 06:30)
DX: S72.145A Nondisplaced intertrochanteric fracture of left femur, initial encounter for closed fracture (principal); Y93.55 Activity, bike riding; V18.0XXA Pedal cycle driver injured in noncollision transport accident in nontraffic accident, initial encounter; C91.10 Chronic lymphocytic leukemia of B-cell type not having achieved remission; R19.00 Intra-abdominal and pelvic swelling, mass and lump, unspecified site; D80.1 Nonfamilial hypogammaglobulinemia; E03.9 Hypothyroidism, unspecified; Z87.01 Personal history of pneumonia (recurrent)
CPT/HCPCS: 72192-PO; 73551-PO; 96374; 97116-GP; 97163-GP; 97166-GO; 97530-GP; 97535-GO; C1713; C1769; G8978-GP-CM; G8979-GP-CI; G8987-GO-CL; G8988-GO-CJ; J1170; J1200; J1459; J1642; J1650; J2001; J2704; J2765; J2795; J3010; J3360

== ENCOUNTER → 2017-11-04 | Outpatient (CLI) | payer OTHER, BC | LOC: FIMAGING 11:30 | PROVIDERS: ATTEND Internal Medicine Hematology & Oncology | DX: Z13.820 Encounter for screening for osteoporosis (principal); M81.0 Age-related osteoporosis without current pathological fracture ==

== ENCOUNTER → 2018-01-07 | Outpatient (CLI) | payer OTHER, BC | LOC: CIMAGING 09:13 | PROVIDERS: ATTEND Internal Medicine | DX: Z12.31 Encounter for screening mammogram for malignant neoplasm of breast (principal); Z85.6 Personal history of leukemia ==

== ENCOUNTER → 2018-01-30 | Outpatient (CLI) | payer OTHER, BC | LOC: BRMIMAGING 13:17 | PROVIDERS: ATTEND Internal Medicine Hematology & Oncology | DX: R92.8 Other abnormal and inconclusive findings on diagnostic imaging of breast (principal) | CPT/HCPCS: 76641-PO ==

== ENCOUNTER 2018-06-03 10:45 | Inpatient (IN) | payer OTHER, BC ==
[2018-06-03] MEDS: ALLOPURINOL 100 MG TAB PO SCH ×2 (14:08→22:02)
[2018-06-03] MEDS: NS 1,000 ML IV SCH ×2 (14:08→20:30)
--- NOTE | 2018-06-03 14:40 | GCON ---
[f rep st] CONSULTATION MEDICAL ONCOLOGY FOLLOWUP CONSULTATION REFERRING PHYSICIAN: Solis Murrieta MD REASON FOR ADMISSION: Initiation of Venetoclax therapy with monitoring for tumor lysis syndrome. RECOMMENDATIONS: 1. Place the patient on allopurinol, a total dose of 600 mg per day. 2. Intravenous hydration with normal saline. 3. Close monitoring of comprehensive metabolic panel, lactate dehydrogenase, inorganic phosphorus an d a uric acid to monitor for development of tumor lysis syndrome. 4. If the patient does not show evidence of tumor lysis within 48 hours, discharge to home. She jamie l continue on the 20 mg dose level per day of Venetoclax for the next 3 weeks. Typically, doses are increased once a week; however, because she will be going out of town to visit her elderly mother, we will not escalate her dose while she is not under close medical supervision. ASSESSMENT: This 67-year-old white female is admitted today to [facility] for monito ring for tumor lysis syndrome while initiating Venetoclax therapy for her chronic lymphocytic leukemi a. The patient was diagnosed with small lymphocytic lymphoma/CLL in April of 2009. She is CD20 po sitive. 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 She was initially treated with 6 cycles of bendamustine and Rituxan from December 05, 2011. She had a partial response. She developed progressive disease with growth of abdominal mass and white count increased to approximately 30,000. She had a biopsy which confirmed the CLL/SLL. She was treated with ibrutinib from April 2013 to November 2013. Her abdominal mass was approximately stable. In 2014, she was treated at [facility] w ith idelalisib and Rituxan. Subsequently, she was on a clinical trial at [facility] with obinutuzumab and Venetoclax. She was treated from February 2015 until September 2016. She apparently had progression at t hat time. Atiya is currently on ibrutinib with stable counts. She is now ready to start Venetoclax once again to help control her symptomatic large abdominal mass that is related to her lymphoma. Because of large mass, she is at risk for tumor lysis, and therefore, will be hydrated and monitored carefully during initiation of Venetoclax therapy. PAST MEDICAL HISTORY: The patient's past medical history is also remarkable for hypothyroidism and o steoporosis. PAST SURGICAL HISTORY: Remarkable for hysterectomy in 1989. She also had a . SOCIAL HISTORY: The patient lives in [place]. Her daughter is at the bedside. REVIEW OF SYSTEMS: Her review of systems is remarkable for abdominal bloating, intermittent lower ex tremity and vulvar edema and hypergargalesthesia. She has no nausea or vomiting. Her bowel movement s are normal. She reports no shortness of breath. She reports no fevers. A 10-system review is ot erwise unremarkable. OBJECTIVE: GENERAL: Physical examination reveals a well-developed woman in no acute distress who is alert and conversant. Her daughter is at the bedside. HEENT: Exam is unremarkable. RESPIRATORY: Her lungs are clear to auscultation anteriorly and posteriorly. CARDIAC: Exam shows a regular rate and rhythm. GI: Abdominal exam shows a distended abdomen with midline lower abdominal mass. EXTRE MITIES: Her lower extremities show a trace of edema at this time. DATA REVIEWED: Her laboratory exam from the May showed a white count of 2.91 with a hemoglobin of 11.0 and a platelet count of 164,000. Her sodium was normal at 141, her creatinine wa s normal at 0.8. Her most recent uric acid was 4.6 on the December. Thank you very much for allowing us to participate in this pleasant woman's oncologic care. I look f orward to assisting with her management during this hospitalization and beyond. /[id number]/MODL
--- NOTE | 2018-06-03 14:51 | ASMTCMCOM ---
CM Note CM Note Notes: Patient is a scheduled direct admit from oncology to monitor for potential tumor lysis syndrome. 67 year old female with no current needs identified, CM to follow for needs. Plan: TBD Date Signed: 06/03/2018 02:51 PM Electronically Signed By:Ivett Live RN
[2018-06-03] MEDS: VENETOCLAX PO SCH (16:06)
[2018-06-03] MEDS ORDERED: ONDANSETRON DISINTEGRATING 4 MG TAB PO PRN (16:42)
[2018-06-03] MEDS ORDERED: ACETAMINOPHEN 325 MG TAB PO PRN (16:42)
[2018-06-03] MEDS ORDERED: ONDANSETRON 4 MG/2 ML VIAL IVP PRN (16:42)
--- NOTE | 2018-06-03 16:56 | PDMN ---
Medical Necessity Medical necessity: [facility] M87 Chemotherapy, A-2 days: 67 yo w/ CLL direct admit for chemo initiation (Venetoclax) w/ high risk tumor lysis syndrome requiring 48hr monitoring, IV fluids and serial labs. Admit to status oncology floor.
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
[2018-06-03] MEDS: LORazepam 1 MG TAB PO PRN (22:02)
[2018-06-04] MEDS ORDERED: diphenhydrAMINE 25 MG CAP PO PRN (00:41)
[2018-06-04] MEDS ORDERED: MELATONIN 3 MG TAB PO PRN (00:41)
[2018-06-04] MEDS: THYROID 60 MG TAB PO SCH (06:06)
[2018-06-04] MEDS: ALLOPURINOL 100 MG TAB PO SCH ×3 (06:06→21:34)
[2018-06-04] MEDS: NS 1,000 ML IV SCH (06:06)
--- NOTE | 2018-06-04 08:46 | HOSPPROG ---
Hospitalist Progress Note Assessment/Plan: 67 yo F w CLL here for venetoclax therapy for symptomatic abd mass venetoclax therapy: labs OK CLL: treatment as above hypothyroid: continue armour thyroid proph: scd's dispo: inpt Subjective: case d.w dr alegre. tele: no events (interp by me) Objective: Vital Signs Temp Pulse Resp BP Pulse Ox 36.8 C 60 22 H 114/64 89 L 06/04/18 06:03 06/04/18 06:03 06/04/18 06:03 06/04/18 06:03 06/04/18 06:03 Laboratory Results 06/04/18 06:05 06/03/18 06/04/18 06/05/18 05:59 05:59 05:59 Intake Total 976 Output Total 1300 Balance -324 - Physical Exam Constitutional: no apparent distress, appears nourished Eyes: PERRL, anicteric sclera Ears, Nose, Mouth, Throat: moist mucous membranes, hearing normal Cardiovascular: regular rate and rhythym, no murmur, rub, or gallop Respiratory: no respiratory distress, no rales or rhonchi Gastrointestinal: normoactive bowel sounds, soft, non-tender abdomen, other ( firm non tender mass) Genitourinary: no bladder fullness, No castro in urethra Skin: warm, normal color Musculoskeletal: full muscle strength Neurologic: AAOx3 Psychiatric: interacting appropriately ICD10 Worksheet Patient Problems: Problems Problem Status Onset Anaerobic bacteremia Acute Closed intertrochanteric fracture of left hip Acute Deep incisional surgical site infection Acute Pneumonia Acute
[2018-06-04] MEDS: VENETOCLAX PO SCH (09:02)
--- NOTE | 2018-06-04 13:26 | SOAPPROG ---
SOAP Progress Note Assessment/Plan: Assessment: Relapsed CLL/SLL - Patient started venetoclax yesterday. So far she feels a little fatigued but otherwise is OK. No evidence of TLS so far. Fatigue - may be related to sleeping aid from last night. Plan: Continue fluids. If not TLS by tomorrow afternoon, would D/C to home. Subjective: A little fatigued but otherwise doing well. Objective: Vital Signs Temp Pulse Resp BP Pulse Ox 36.4 C 73 16 127/85 H 92 06/04/18 11:56 06/04/18 11:56 06/04/18 11:56 06/04/18 11:56 06/04/18 11:56 Laboratory Results 06/04/18 06:05 06/02/18 06/03/18 06/04/18 23:59 23:59 23:59 Intake Total 776 200 Output Total 400 900 Balance 376 -700 Physical Exam - Physical Exam General Appearance: alert, no apparent distress Respiratory: lungs clear Cardiac/Chest: regular rate, rhythm Abdomen: normal bowel sounds, non-tender, other (lower abdominal mass) Neuro/Psych: no motor/sensory deficits, alert, normal mood/affect, oriented x 3 ICD10 Worksheet Patient Problems: Problems Problem Status Onset Anaerobic bacteremia Acute Closed intertrochanteric fracture of left hip Acute Deep incisional surgical site infection Acute Pneumonia Acute
--- NOTE | 2018-06-04 16:12 | ASMTCMCOM ---
CM Note CM Note Notes: Pt's goals reviewed. 67yr old female in with abdominal mass who received Chemotherapy. Pt is independent and no needs identified. CM available should needs arise. Plan: Likely to dc home with no needs when medically cleared for discharge. Date Signed: 06/04/2018 04:11 PM Electronically Signed By:Ivett Live RN
[2018-06-04] MEDS: LORazepam 1 MG TAB PO PRN (21:34)
[2018-06-05] MEDS: NS 1,000 ML IV SCH (06:46)
[2018-06-05] MEDS: THYROID 60 MG TAB PO SCH (06:47)
[2018-06-05] MEDS: ALLOPURINOL 100 MG TAB PO SCH (06:47)
[2018-06-05] MEDS: VENETOCLAX PO SCH (09:49)
--- NOTE | 2018-06-05 09:55 | HOSPPROG ---
Hospitalist Progress Note Assessment/Plan: 67 yo F w CLL here for venetoclax therapy for symptomatic abd mass venetoclax therapy: labs OK CLL: treatment as above check cbc at her request hypothyroid: continue armour thyroid proph: scd's dispo: inpt Subjective: feels well. anxious for dc. aasking about cbc Objective: Vital Signs Temp Pulse Resp BP Pulse Ox 36.8 C 61 16 136/73 H 93 06/05/18 07:34 06/05/18 07:34 06/05/18 07:34 06/05/18 07:34 06/05/18 07:34 Laboratory Results 06/04/18 06:05 06/04/18 06/05/18 06/06/18 05:59 05:59 05:59 Intake Total 976 0 1725 Output Total 1300 2000 Balance -562 37 8669 - Physical Exam Constitutional: no apparent distress, appears nourished Eyes: PERRL, anicteric sclera Ears, Nose, Mouth, Throat: moist mucous membranes, hearing normal Cardiovascular: regular rate and rhythym, no murmur, rub, or gallop Respiratory: no respiratory distress, no rales or rhonchi Gastrointestinal: normoactive bowel sounds, other (non tender abdominal mass) Genitourinary: no bladder fullness, No castro in urethra Skin: warm, normal color Musculoskeletal: full muscle strength Neurologic: AAOx3 Psychiatric: interacting appropriately ICD10 Worksheet Patient Problems: Problems Problem Status Onset Anaerobic bacteremia Acute Closed intertrochanteric fracture of left hip Acute Deep incisional surgical site infection Acute Pneumonia Acute
[2018-06-05 11:17] VITALS: BP 139/75
--- NOTE | 2018-06-05 11:59 | SOAPPROG ---
SOAP Progress Note Assessment/Plan: Assessment: Relapsed CLL/SLL - Patient started venetoclax 03 JUN 2018. She is asymptomatic and would like to go home. No evidence of TLS on labs. Plan: I think she is OK to go home today. Continue venetoclax 20mg/day PO F/U with Dr. Feliz in office next week. Subjective: No complaints today. Anxious to get out to enjoy the snow. Objective: Vital Signs Temp Pulse Resp BP Pulse Ox 36.2 C 69 14 139/75 H 91 L 06/05/18 11:15 06/05/18 11:15 06/05/18 11:15 06/05/18 11:15 06/05/18 11:15 Laboratory Results 06/04/18 06:05 06/03/18 06/04/18 06/05/18 23:59 23:59 23:59 Intake Total 776 1999 1974 Output Total 400 2900 Balance 376 -900 1974 Physical Exam - Physical Exam General Appearance: alert, no apparent distress Respiratory: lungs clear Cardiac/Chest: regular rate, rhythm Abdomen: other (low midline abdominal mass unchanged.) Skin: normal color, warm/dry Extremities: No swelling Neuro/Psych: alert, normal mood/affect, oriented x 3 ICD10 Worksheet Patient Problems: Problems Problem Status Onset Anaerobic bacteremia Acute Closed intertrochanteric fracture of left hip Acute Deep incisional surgical site infection Acute Pneumonia Acute
[2018-06-05 13:14] LABS: PLATELET COUNT 189 10^3/uL (150-400)
== END 2018-06-05 14:46 | disposition home or self-care (01) | DRG 847 ==
LOC: EDSTATUS 10:45 → F1N 10:45 → F1NOP 11:11
PROVIDERS: ADMIT Internal Medicine; ATTEND Internal Medicine
DX: Z51.11 Encounter for antineoplastic chemotherapy (principal); C91.10 Chronic lymphocytic leukemia of B-cell type not having achieved remission; M81.0 Age-related osteoporosis without current pathological fracture; E03.9 Hypothyroidism, unspecified
CPT/HCPCS: J1642

== ENCOUNTER 2018-06-24 09:00 | Inpatient (IN) | payer OTHER, BC ==
--- NOTE | 2018-06-24 12:21 | ASMTCMCOM ---
CM Note CM Note Notes: New admission for today history significant for long standing Non Hodgkin's lymphoma. Diagnosed with abdominal mass and is admitted for chemotherapy. CM to follow for needs. Last admission patient able to dc independent, Plan: TBD Date Signed: 06/24/2018 12:18 PM Electronically Signed By:Ivett Live RN
[2018-06-24] MEDS ORDERED: oxyCODONE IR 5 MG TAB PO PRN (12:31)
[2018-06-24] MEDS ORDERED: ONDANSETRON DISINTEGRATING 4 MG TAB PO PRN (12:31)
[2018-06-24] MEDS ORDERED: ONDANSETRON 4 MG/2 ML VIAL IVP PRN (12:31)
[2018-06-24] MEDS ORDERED: ACETAMINOPHEN 325 MG TAB PO PRN (12:31)
--- NOTE | 2018-06-24 12:36 | PDGENHP ---
History and Physical - Chief Complaint IV chemotherapy - History of Present Illness 67yo F with relapsed CLL/SLL who is here for chemotherapy and lab monitoring. She was recently initiated on venetoclax earlier in May for a symptomatic large abdominal mass. She tolerated this well and had an uneventful hospital course. Since that time she has felt a little more fatigue but otherwise no new symptoms. She denies fevers, chills, n/v/d, shortness of breath, cough. No significant change in her abdominal discomfort. She receives IVIg every 3 weeks and got this yesterday. She has remained active. History Information - Allergies/Home Medication List Allergies/Adverse Reactions: cefdinir Allergy (Severe, Verified 08/23/17 16:47) Anaphylaxis Quinolones Allergy (Verified 08/23/17 16:47) NAUSEA, ITCHING, RASH Home Medications: Thyroid [[place] Thyroid 60 MG (*)] 60 mg PO DAILY06 09/17/14 [Last Taken ] Ibrutinib [Imbruvica] 420 mg PO DAILY 11/29/16 [Last Taken 06/03/18] LORazepam [Ativan (*)] 1 mg PO HS PRN 06/03/18 [Last Taken Unknown] Risedronate Sodium [Actonel] 35 mg PO SA@21 06/03/18 [Last Taken 05/31/18] Venetoclax [Venclexta] 20 mg PO DAILY 06/03/18 [Last Taken Unknown] I have personally reviewed and updated: family history, medical history, social history, surgical history - Past Medical History Additional medical history: CLL/SLL, osteoporosis, hypothyroidism, hip fracture - Surgical History Additional surgical history: hip surgery - Family History Positive for: cancer - Social History Smoking Status: Never smoked Alcohol Use: None Drug Use: None Additional social history: Lives in [place]. Review of Systems Review of Systems: ROS: 10pt was reviewed & negative except for what was stated in HPI & below Physical Exam Physical Exam: Temp Pulse Resp BP Pulse Ox 36.6 C 67 16 128/83 H 91 L 06/24/18 12:21 06/24/18 12:21 06/24/18 12:21 06/24/18 12:21 06/24/18 12:21 Constitutional: no apparent distress, appears nourished, not in pain Eyes: PERRL, anicteric sclera, EOMI Ears, Nose, Mouth, Throat: moist mucous membranes, hearing normal, ears appear normal, no oral mucosal ulcers Cardiovascular: regular rate and rhythym, no murmur, rub, or gallop, No edema Respiratory: no respiratory distress, no rales or rhonchi, clear to auscultation Gastrointestinal: normoactive bowel sounds, soft, non-tender abdomen, no palpable masses Genitourinary: no bladder fullness, no bladder tenderness Skin: warm, normal color, no rashes or abrasions, no fluctuance, no induration, other (left chest port c/d/i without signs of infection), No mottled Musculoskeletal: full muscle strength, no muscle tenderness, normal joint ROM, no joint effusions Neurologic: AAOx3 Psychiatric: interacting appropriately Assessment & Plan Assessment: 67yo F with relapsed CLL/SLL who is here for lab monitoring with chemotherapy. Plan: # Replapsed CLL/SLL with symptomatic abdominal mass - Venetoclax per oncology - Monitor TLS labs q6h and have ordered allopurinol 200mg q8h as well as IVF # Hypothyroidism: Continue home thyroid replacement # Osteoporosis: Holding bisphosphonate. VTE ppx: LMWH Code: full Dispo: Admit as inpatient
[2018-06-24 13:42] LABS: PLATELET COUNT 165 10^3/uL (150-400)
[2018-06-24] MEDS: NS 1,000 ML IV SCH ×2 (14:02→20:53)
[2018-06-24] MEDS ORDERED: LORazepam 1 MG TAB PO PRN (14:11)
--- NOTE | 2018-06-24 15:17 | GCON ---
[f rep st] CONSULTATION NEW PATIENT CONSULT PRIMARY ONCOLOGIST: Dr. Vivian Feliz REASON FOR CONSULTATION: Patient admitted for venetoclax dose escalation with underlying chemo refra ctory CLL. HISTORY OF PRESENT ILLNESS: The patient was initially diagnosed with CLL, SLL in April 2009. She was treated with 6 cycles of bendamustine and rituximab from August to November 2011. She was treated in [place] and had a partial response. She had an enlarged retroperitoneal mass that had decreased i n size, but had not completely resolved. She developed progressive disease in April 2013. There w as growth of the abdominal mass and a white blood cell count had increased to 30,000. CT-guided need le biopsy of retroperitoneal mass was done due to some atypical radiographic features, it confirmed C LL. She was treated with ibrutinib from April 2013 to November of 2013. The abdominal mass remained stab le in size. There was decrease in some of the other retroperitoneal adenopathy. Her white blood john l count did remain elevated. In November 2013, she discontinued the medication due to adverse side effects. She had progressive dis ease again in the spring. Her retroperitoneal mass was enlarging. She was seen at [facility] on and treatment with idelalisib and rituximab was recommended. She was interested in a clinical tri al. She was seen at [facility] and felt to be possibly eligible for ABT trial. The retroperitoneal mass co ntinued to have some atypical features and there was concern of a liposarcoma. The mass had decrease d with prior bendamustine and Rituxan, and prior CT-guided biopsy showed CLL, but in the end, she did undergo a laparoscopic biopsy in August [address] Sid Forrester at [facility]. The biopsy did confirm CLL. There was no evidence of Alan's transformation. Unfortunately, she had a difficult postoperative course with wound infection and dehiscence necessita ting a wound VAC. She was then treated on a clinical trial at [facility] with obinutuzumab and venetoclax. She started the trial February 2015, and was taken off the trial in early September 2016, due to progres alexis. She started another trial at [facility] with [id number] in mid September. Again, felt to have progressive disease by week 5 and started ibrutinib in October of 2016. Patient's peripheral blood FISH done July 2014, at [facility] showed both 11q deletion and 13q del etion. She had unmutated IgVH mutational status. Since that time, patient has been treated for hypo gammaglobulinemia with IVIG. She was also diagnosed with influenza B in May 2017. She broke he r hip in July 2017. More recently, the patient continues on ibrutinib and she is now committed to venetoclax and is in do se escalation phase. Given the high tumor burden, it is felt that she is high risk for tumor lysis, so admitted for IV fluids, tumor lysis labs, and allopurinol. Her most recent uric acid is 5.1. REVIEW OF SYSTEMS: The patient feels well today. She does note abdominal distention that waxes and wanes associated with her abdominal mass. She denies any shortness of breath or chest pain. Denies any nausea, vomiting, or diarrhea. She denies any ongoing fevers. She did have mild nausea and fati robin with venetoclax at 20 mg. PAST MEDICAL HISTORY: Hypothyroidism, osteoporosis, hypogammaglobulinemia, history of pneumonia 2017 , history of influenza A in 2016, history of influenza B in May 2017, left hip fracture after fa ll July 2017. FAMILY HISTORY: Noncontributory. SOCIAL HISTORY: Lives in [place]. No alcohol, tobacco, or drugs currently. PHYSICAL EXAM: VITAL SIGNS: Show blood pressure 128/83, heart rate is 67, respiratory rate 16 satur ating 91% on room air, temperature is 36.6. GENERAL: She is a 67-year-old woman looks her stated ag e, slightly fatigued appearing. HEENT: Anicteric. Oropharynx is clear. HEART: Regular rate and r hythm. LUNGS: Clear to auscultation bilaterally. LYMPHATIC: Lymph node survey, there is no cervic al, supraclavicular, axillary lymph nodes palpated today. ABDOMEN: She has a large abdominal mass c entrally. Remains stable in size, not tender to palpation, no obvious ascites. CURRENT LABS: Have been reviewed including CBC, CMP. Her most recent total bilirubin is 2.3. This is mostly indirect previously and felt to be due to ibrutinib. No dose adjustments have been recomme nded. IMAGING: No recent CT scans or PET-CT scans noted. ASSESSMENT AND PLAN: The patient is a 67-year-old woman with history of chemotherapy refractory physician representative isabella lymphocytic leukemia/small lymphocytic lymphoma who was admitted for venetoclax dose escalation g iven high risk disease. She also has a history of hypogammaglobulinemia. 1. Small lymphocytic lymphoma/chronic lymphocytic leukemia, refractory, progressive disease. We jamie l initiate venetoclax 50 mg this week. Continues on current dose of ibrutinib. We will check tumor lysis labs during this admission. She will be hydrated with normal saline 100 mL/hour. She is also on prophylactic allopurinol. Starting uric acid 5.1. No indication for rasburicase. The patient garduno s been seen by multiple institutions, most recently [facility]. They are evaluating her for CAR T therapy, but there are some high risk features to her disease. I would note maybe worthwhile evaluating micheal er a CT or PET scan as she makes her way into venetoclax to evaluate for response. She has not had a dramatic response as previously. 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 2. Hypogammaglobulinemia and receives IVIG as an outpatient. 3. History of osteoporosis. 4. Transient neutropenia, as well as history of mild hyperbilirubinemia due to ibrutinib. No dose a djustments will need to be made. We will continue to monitor. 5. We will continue monitoring the patient in the hospital. Will note Dr. Feliz would like patient on an extended dose of 50 mg of venetoclax. Due to patient's upcoming travel, we will try to arrang e this through [facility]. More than 30 minute spent with patient, more than 50% of time counseling and coordinating care. /[id number]/MODL
[2018-06-24] MEDS: VENETOCLAX 50 MG PO SCH (15:28)
[2018-06-24] MEDS: ALLOPURINOL 100 MG TAB PO SCH ×2 (15:29→20:52)
--- NOTE | 2018-06-24 17:30 | PDMN ---
Medical Necessity Medical necessity: Pt meets IP criteria per & MARANDA M-87; est los >2 mn for Venetoclax chemo infusion; requiring close monitoring, IVFs & serial labs; hx CLL/SLL w/symptomatic abdominal mass; per H&P & order 06/24/18
[2018-06-24] MEDS: CALCIUM CARBONATE 500 MG CHEWABLE TAB PO PRN (18:20)
[2018-06-25] MEDS: ALLOPURINOL 100 MG TAB PO SCH ×3 (05:44→21:34)
[2018-06-25] MEDS: NS 1,000 ML IV SCH ×2 (05:45→17:13)
[2018-06-25] MEDS: THYROID 60 MG TAB PO SCH (05:45)
--- NOTE | 2018-06-25 07:51 | HOSPPROG ---
Hospitalist Progress Note Assessment/Plan: DIAGNOSES: * CLL/SLL with progression on venetoclax/ibrutinib * admission for venetoclax dose escalation * Side effects of venue to clinics here so far: Severe hot flushing sensation through body and severe nausea, insomnia * high risk of tumor lysis syndrome requiring careful laboratory monitoring, IV hydration w urine alkalinization * Anemia due to her CLL and its treatment * hypogammaglobulinemia, chronic requiring ivig infusions * risk of neutropenia from ibutrinib * osteoporosis, chronic, * hypothyroidism chronic on replacement PLANS: * More aggressive antiemetic medication with scheduled medicine before meals * I have reviewed the flushing hot sensation with pharmacy and we are looking to try and find ways to mitigate that * Continue to monitor for lysis syndrome with laboratory numbers * Continue hydration and alkalinization of urine * Continue allopurinol * Recheck hemoglobin Seen by me on hospitalist rounds today as well as multidisciplinary rounds Reviewed with Dr. Flowers SUBJECTIVE: Complains that she slept very poorly last night, and had severe hot flushing sensation "like I am on fire" along with severe nausea after getting venetoclax Note dyspnea, minimal pain OBJECTIVE Vitals reviewed: All stable without fever Exam: alert oriented skin warm dry color ok resps not labored lungs clear BSs heart regular abd soft nondistended nontender, bowel sounds present limbs warm, no edema iv site ok Lab data: Electrolytes stable Acid-base normal Uric acid steady at 4.1 Mild elevation of bilirubin at 2.1 Albumin slightly low at 3.1 Objective: Vital Signs Temp Pulse Resp BP Pulse Ox 36.8 C 61 16 110/67 92 06/25/18 04:00 06/25/18 04:00 06/25/18 04:00 06/25/18 04:00 06/25/18 04:00 Laboratory Results 06/24/18 13:00 06/25/18 05:45 06/24/18 06/25/18 06/26/18 06:59 06:59 06:59 Intake Total 2496 Balance 2496 - Time Spent With Patient Time Spent with Patient: greater than 35 minutes Time Spent with Patient: Greater than 35 minutes spent on this patients care, greater than 50% of time spent counseling, educating, and coordinating care regarding the above mentioned plan. ICD10 Worksheet Patient Problems: Problems Problem Status Onset Anaerobic bacteremia Acute Closed intertrochanteric fracture of left hip Acute Deep incisional surgical site infection Acute Pneumonia Acute
[2018-06-25] MEDS: IBRUTINIB PO SCH (08:49)
[2018-06-25] MEDS ORDERED: PROMETHAZINE HCL 25 MG/ML INJ IVP PRN (08:55)
[2018-06-25] MEDS: FAMOTIDINE 20 MG TAB PO SCH ×2 (09:01→21:34)
[2018-06-25] MEDS: ENOXAPARIN 40 MG/0.4 ML SYR SC SCH (10:04)
[2018-06-25] MEDS: VENETOCLAX 50 MG PO SCH (10:18)
--- NOTE | 2018-06-25 11:47 | SOAPPROG ---
SOAP Progress Note Assessment/Plan: Assessment/Plan: 67 yo woman w chemo refractory progressive CLL/SLL admitted for venetoclax dose escalation 1. CLL/SLL - Doing well on 50mg venetoclax No signs of tumor lysis Cont IVF and monitor another 24 hour Large abdominal mass noted on exam Cont Ibrutinib being evaluated in [place] for CAR-T therapy 2. Hypogammaglobulinemia - received IVIg as outpt Q3 weeks 3. Hx of elevated Tbili - from ibrutinib; no dose adjustments 4. Hx of neutropenia - CBC in am Should be able to d/c tomorrow 06/25/18 11:39 06/25/18 11:47 Subjective: No acute events Mild nausea Denies pain Objective: Vital Signs Temp Pulse Resp BP Pulse Ox 36.7 C 70 16 160/86 H 94 06/25/18 08:00 06/25/18 08:00 06/25/18 08:00 06/25/18 08:00 06/25/18 08:00 Laboratory Results 06/24/18 13:00 06/25/18 05:45 06/24/18 06/25/18 06/26/18 05:59 05:59 05:59 Intake Total 2896 Balance 2896 Gen - NAD HEENT - anicteric CV - RRR Resp - CTAB Abd - large central abdominal mass Ext - no sig edema,no bruising ICD10 Worksheet Patient Problems: Problems Problem Status Onset Anaerobic bacteremia Acute Closed intertrochanteric fracture of left hip Acute Deep incisional surgical site infection Acute Pneumonia Acute
--- NOTE | 2018-06-25 12:36 | ASMTCMCOM ---
CM Note CM Note Notes: Chart reviewed. Patient doing fairly well with no sign of tumor lysis. Previously discharge to home independently. No needs anticipated at this time. Plan: Likely to dc to home independently tomorrow once medically cleared. Date Signed: 06/25/2018 12:22 PM Electronically Signed By:Ivett Live RN
[2018-06-25] MEDS: ONDANSETRON DISINTEGRATING 4 MG TAB PO SCH ×2 (13:45→17:36)
[2018-06-25] MEDS: CALCIUM CARBONATE 500 MG CHEWABLE TAB PO PRN (19:29)
[2018-06-26] MEDS: NS 1,000 ML IV SCH ×2 (00:56→10:09)
[2018-06-26] MEDS: THYROID 60 MG TAB PO SCH (06:41)
[2018-06-26] MEDS: ALLOPURINOL 100 MG TAB PO SCH ×2 (06:41→14:02)
[2018-06-26] MEDS: IBRUTINIB PO SCH (08:28)
[2018-06-26] MEDS: ONDANSETRON DISINTEGRATING 4 MG TAB PO SCH ×2 (08:29→12:51)
[2018-06-26] MEDS: VENETOCLAX 50 MG PO SCH (09:24)
[2018-06-26] MEDS: FAMOTIDINE 20 MG TAB PO SCH (10:10)
--- NOTE | 2018-06-26 11:46 | SOAPPROG ---
SOAP Progress Note Assessment/Plan: Assessment/Plan: 67 yo woman w chemo refractory progressive CLL/SLL admitted for venetoclax dose escalation 1. CLL/SLL - Doing well on 50mg venetoclax No signs of tumor lysis Ok for discharge today Large abdominal mass noted on exam Cont Ibrutinib being evaluated in [place] for CAR-T therapy 2. Hypogammaglobulinemia - received IVIg as outpt Q3 weeks 3. Hx of elevated Tbili - from ibrutinib; no dose adjustments 4. Hx of neutropenia - No CBC today 5. Nausea - felt like she had a bad reaction to phenergan last night - does not want again will need oral antiemetic for home on discharged Follow up as outpt w Dr Feliz 06/26/18 11:43 06/26/18 11:45 Subjective: Nausea overnight did not sleep well Objective: Vital Signs Temp Pulse Resp BP Pulse Ox 36.7 C 59 L 14 115/66 89 L 06/26/18 08:34 06/26/18 08:34 06/26/18 08:34 06/26/18 08:34 06/26/18 08:34 Laboratory Results 06/24/18 13:00 06/25/18 05:45 06/25/18 06/26/18 06/27/18 05:59 05:59 05:59 Intake Total 2896 1978 1342 Output Total 1000 900 Balance 2896 978 442 Gen - NAD CV - RRR Chest - CTAB abd - large abdominal mass unchanged ext - no edema ICD10 Worksheet Patient Problems: Problems Problem Status Onset Anaerobic bacteremia Acute Closed intertrochanteric fracture of left hip Acute Deep incisional surgical site infection Acute Pneumonia Acute
[2018-06-26 11:51] VITALS: BP 126/84
[2018-06-26 12:46] LABS: PLATELET COUNT 138 10^3/uL (150-400)
[2018-06-26] MEDS: ENOXAPARIN 40 MG/0.4 ML SYR SC SCH (12:53)
--- NOTE | 2018-06-26 14:15 | PDDCSUM ---
Discharge Summary Discharge Summary: DISCHARGE DIAGNOSES: * CLL with progression of disease on venetoclax/ibrutinib * Admission for escalation of medication dosage * Nausea and hot flushing as side effects of medication * Anemia due to CLL and its treatment * Chronic hypogammaglobulinemia * Chronic osteoporosis * Hypothyroidism CONSULTANTS: Dr. Savanna Flowers PROCEDURES: Administration of chemotherapy HOSPITAL COURSE SUMMARY: This patient who has known CLL/SLL has had progression of disease on her vnetoclax/ibutrinib. She was admitted at this time for escalation of the venetoclax dose. She was started on the medication here and did have significant flushing and nausea but these symptoms have been controlled reasonably well with Zofran here. At this point she is not having tumor lysis syndrome while taking allopurinol. She is eating, ambulating, and thriving reasonably well with stable vital signs and no fever. She is felt stable for discharge to home. She will be following up in clinic next week with Dr. Vivian Feliz. We have discussed with her side effects to watch for with the medications and warning signals for other concerning issues. PENDING TEST RESULTS: None MEDICATION CHANGES: Increase in Vinetoclax 250 mg daily Addition of Zofran as needed for nausea FOLLOW-UP PLAN: With Dr. Feliz next week in clinic Greater than 35 minutes bedside and care coordination time today
--- NOTE | 2018-06-26 15:14 | ASMTLACE ---
LACE Length of stay for Answers: 2 days current admission Acuity / Level of Answers: Yes Care: Did the patient have an inpatient admission? Comorbidities - select Answers: Any tumor (including all that apply lymphoma or leukemia) Other Notes: Hypothyroid # of Emergency department Answers: 0 visits in the last 6 months Score: 8 Date Signed: 06/26/2018 03:14 PM Electronically Signed By:Becky Crawford
--- NOTE | 2018-06-26 15:18 | ASMTCMCOM ---
CM Note CM Note Notes: Pt discussed in rounds. Pt cleared medically for discharge. No needs identified by CM. Plan: Home independently Date Signed: 06/26/2018 03:17 PM Electronically Signed By:Becky Crawford
== END 2018-06-26 15:12 | disposition home or self-care (01) | DRG 847 ==
LOC: EDSTATUS 09:00 → F1NOP 11:27 → F1N 11:28
PROVIDERS: ADMIT Internal Medicine Hematology & Oncology; ATTEND Internal Medicine Hematology & Oncology
DX: Z51.11 Encounter for antineoplastic chemotherapy (principal); C91.10 Chronic lymphocytic leukemia of B-cell type not having achieved remission; D80.1 Nonfamilial hypogammaglobulinemia; D70.2 Other drug-induced agranulocytosis; T45.1X5A Adverse effect of antineoplastic and immunosuppressive drugs, initial encounter; D64.81 Anemia due to antineoplastic chemotherapy; D63.8 Anemia in other chronic diseases classified elsewhere; E03.9 Hypothyroidism, unspecified; M81.0 Age-related osteoporosis without current pathological fracture; Z87.01 Personal history of pneumonia (recurrent)
CPT/HCPCS: J1642; J1650; J2550

== ENCOUNTER 2018-08-18 14:47 | Emergency (ER) | payer OTHER, BC ==
[2018-08-18 14:56] VITALS: BP 152/96
--- NOTE | 2018-08-18 15:11 | EDPHY ---
H & P Time Seen by Provider: 08/18/18 14:54 HPI/ROS: This patient had a mechanical fall on Saturday, 2 days prior to arrival when she is walking her 3 legged dog down a steep [place] and she tripped falling sustaining an injury to the left leg and superficial abrasion to her nose. She complains of pain to the leg. Her daughter came to town today and recommended that she come in for evaluation. She reports swelling and minor abrasion. She has been cleaning the abrasion daily and applying some kind of antibiotic ointment. She has been taking ibuprofen with minimal improvement in nighttime she feels she is having difficulty sleeping due to the pain. Currently she reports 3/10 pain reports that about the average of the pain intensity. She thinks that slightly worse today because she was up on her feet cooking for several hours yesterday. ROS: Constitutional: No fevers Integumentary: She denies any significant redness or other complaints. HEENT: She denies any significant nose pain or other facial injuries other than the superficial abrasion. No dental trauma Musculoskeletal: She denies any neck or back pain from the fall Pulmonary: No chest wall pain 7 point review of symptoms is performed and otherwise negative with exception of pertinent positives and negatives listed in HPI and ROS Past Medical/Surgical History: Otherwise healthy Smoking Status: Never smoked Physical Exam: Physical Exam Vital signs are normal. General: No acute distress HEENT: Atraumatic except for superficial abrasion to the nose with out surrounding erythema is small in size proximally cm. She also has superficial abrasion lower lip with no erythema or discharge. Intraoral exam is atraumatic. No mandibular tenderness. Eyes: Pupils equal and react to light. Extraocular motions are intact. Lungs: No respiratory distress. No chest wall tenderness Cardiac: Brisk capillary refill is intact throughout. Pulses are 2+ and symmetric in the affected extremity. Extremities: Atraumatic normal except for left leg Left leg: Patient has a 9 x 4 cm traumatic hematoma to pretibial region with a superficial abrasions clean dry intact. There is no surrounding erythema. No discharge. There is mild tenderness. She has no lateral tenderness the leg no posterior tenderness no ankle trauma or knee trauma. She ambulates without difficulty. She has mild tenderness to the hematoma itself. Skin: No rash or pallor. Neuro: Alert and oriented x3 with no sensorimotor deficits. Constitutional: Initial Vital Signs Temperature (C) 36.5 C 08/18/18 14:52 Heart Rate 59 L 08/18/18 14:52 Respiratory Rate 18 08/18/18 14:52 Blood Pressure 152/96 H 08/18/18 14:52 O2 Sat (%) 98 08/18/18 14:52 O2 Delivery Mode Room Air Allergies/Adverse Reactions: cefdinir Allergy (Severe, Verified 08/18/18 14:52) Anaphylaxis Quinolones Allergy (Verified 08/18/18 14:52) NAUSEA, ITCHING, RASH Home Medications: Medication Instructions Recorded Thyroid [[place] Thyroid 60 MG (*)] 60 mg PO DAILY06 09/17/14 Ibrutinib [Imbruvica] 420 mg PO DAILY 11/29/16 LORazepam [Ativan (*)] 1 mg PO HS PRN 06/03/18 Risedronate Sodium [Actonel] 35 mg PO SA@21 06/03/18 Allopurinol [Allopurinol 300 MG 300 mg PO DAILY #30 tab 06/05/18 (RX)] Venetoclax [Venclexta] 50 mg PO DAILY 06/24/18 Ondansetron Odt [Zofran Odt] 4 mg SL Q4HRS PRN #30 tab 06/26/18 Lidocaine [Lidocaine 5% oint] 1 ratna TP Q6 PRN #15 oint...g. 08/18/18 MDM/Departure - [facility] ED Course/Re-evaluation: Discussion: Patient's findings are consistent with a traumatic hematoma and superficial abrasion without evidence clinically of fracture or other complicating factors. No evidence of infection currently. I counseled her regarding wound care. Will provide some lidocaine ointment to use at nighttime to help with the pain. I instructed her during her visit regarding the use of this medication. She understands need to return should she develop redness discharge or other concerns. - Depart Disposition: Home, Routine, Self-Care Clinical Impression: Traumatic hematoma Leg abrasion Qualifiers: Encounter type: initial encounter Laterality: left Qualified Code(s): S80.812A - Abrasion, left lower leg, initial encounter Condition: Good Instructions: Abrasion (ED), Hematoma (ED) Additional Instructions: Diagnosis: Traumatic hematoma 2. Leg wound/abrasion Plan: Clean the wound daily as you are Apply bacitracin or similar ointment Ice 20 min at a time 3 times a day or more until swelling resolves Continue ibuprofen for pain Add Tylenol and lidocaine ointment at nighttime as prescribed. Remember to use lidocaine for 12 hr and then no lidocaine for 12 hr during a 24 hr. Elevate her leg whenever possible Return for any significant worsening despite the treatment plan Prescriptions: Lidocaine [Lidocaine 5% oint] 1 ratna TP Q6 PRN #15 oint...g. PRN Reason: Pain, Breakthrough Referrals: Vivian Feliz MD [Primary Care Provider] - As per Instructions
== END 2018-08-18 15:24 | disposition home or self-care (01) ==
LOC: CED 14:47
DX: S80.812A Abrasion, left lower leg, initial encounter (principal); S80.12XA Contusion of left lower leg, initial encounter; S00.31XA Abrasion of nose, initial encounter; W01.0XXA Fall on same level from slipping, tripping and stumbling without subsequent striking against object, initial encounter; Y93.K1 Activity, walking an animal; Y92.828 Other wilderness area as the place of occurrence of the external cause
CPT/HCPCS: 99283-ER